=== PATIENT | male | born 1955 | race African-American/Black ===

== ENCOUNTER 2016-08-11 03:13 | Inpatient (IN) | payer BC ==
[~2016-08-11] VITALS: Ht 184.2 cm; Wt 152.4 kg
[2016-08-11 04:18] LABS: BASO % 0 % (0-3); EOS % 0 % (0-3); HEMATOCRIT 42.3 % (39.0-53.0); HEMOGLOBIN 13.1 g/dL (13.0-17.5); LYMPH % 8 % (24-48); MEAN CORPUSCULAR HEMOGLOBIN 22 pg (25-35); MEAN CORPUSCULAR HGB CONC 31 g/dL (31-37); MEAN CORPUSCULAR VOLUME 71 fL (79-100); MONO % 8 % (0-9); NEUT % 84 % (31-73); PLATELET COUNT 166 x10^3/uL (140-400); RED BLOOD COUNT 5.97 x10^6/uL (4.30-5.70); RED CELL DISTRIBUTION WIDTH 15.1 % (11.5-14.5); WHITE BLOOD COUNT 13.3 x10^3/uL (4.0-11.0)
[2016-08-11 04:31] LABS: CALCIUM 8.6 mg/dL (8.5-10.1); CREATININE 1.2 mg/dL (0.7-1.3); GFR 61.1; POTASSIUM 3.9 mmol/L (3.5-5.1)
[2016-08-11 04:37] LABS: OBC FLU VALID
[2016-08-11 04:37] LABS: ALBUMIN 3.4 g/dL (3.4-5.0); ALBUMIN/GLOBULIN RATIO 0.7 (1.0-1.7); TOTAL BILIRUBIN 0.9 mg/dL (0.2-1.0)
[2016-08-11 04:52] LABS: BILIRUBIN,URINE SMALL (NEG); GLUCOSE,URINE NEGATIVE (NEG); NITRITE,URINE NEGATIVE (NEG); PH,URINE 5.5; PROTEIN,URINE 30 mg/dL (NEG-TRACE); UROBILINOGEN,URINE 0.2 mg/dL (0.2 mg/dL)
[2016-08-11] MEDS ORDERED: ASPIRIN 325 MG TABLET PO ONE (05:15)
[2016-08-11 05:33] LABS: RBC,URINE OCC /HPF (0-2)
[2016-08-11 05:34] LABS: BACTERIA,URINE 0 /HPF (0-FEW); SQUAMOUS EPITHELIAL CELL,UR FEW /LPF
[2016-08-11] MEDS ORDERED: ACETAMINOPHEN 325 MG TABLET. PO PRN ×2 (05:45→09:15)
[2016-08-11] MEDS ORDERED: ONDANSETRON PF 4 MG/2 ML VIAL. IV PRN ×2 (05:45→09:15)
[2016-08-11] MEDS ORDERED: FENTANYL PF 100 MCG/2 ML VIAL. IV PRN (05:45)
[2016-08-11 06:07] VITALS: BP 133/77
[2016-08-11 07:00] VITALS: BP 137/75
--- NOTE | 2016-08-11 07:19 | ED.ADGEN ---
Past Medical History Past Medical History: Hypertension Past Surgical History: No Surgical History Alcohol Use: None Drug Use: None Adult General Chief Complaint Chief Complaint: FLU SYMPTOM HPI HPI Patient is a 61 year old man, history of hypertension, who presents emergency Department with complaint of "flu symptoms". Patient states he had positive sick contacts at home from his granddaughter, who was presumed to have the flu. He states that over the past several days he can feel increasingly weak, experiencing a feeling of "sickness", which he describes as a sort of nausea, dizziness, lightheadedness and shortness of breath that occurs intermittently. He denies any chest pain or chest tightness. Denies any vomiting, states he has had multiple episodes of loose brown stool. States he is having pain in the epigastric region, sharp, stabbing and cramping, although he denies printing any pain currently. Patient states he is feeling weak all over, but denies any focal weakness numbness or tingling, any blurred vision, any headache, any injuries. Patient has been compliant with all medications. No recent travel or surgery, history of DVT or PE. Review of Systems Review of Systems Constitutional: Denies fever or chills. [] Generalized weakness and malaise. Eyes: Denies change in visual acuity. [] HENT: Denies nasal congestion or sore throat. [] Respiratory: Denies cough, complaining of shortness of breath. Cardiovascular: Denies chest pain or edema. [] GI: Epigastric abdominal pain with nausea, denies vomiting, bloody stools, multiple episodes of diarrhea. [] : Denies dysuria. [] Musculoskeletal: Denies back pain or joint pain. [] Integument: Denies rash. [] Neurologic: Denies headache, focal weakness or sensory changes. [] Endocrine: Denies polyuria or polydipsia. [] Lymphatic: Denies swollen glands. [] Psychiatric: Denies depression or anxiety. [] Current Medications Current Medications Current Medications Medications (Trade) Dose Ordered Sig/Cipriano Start Time Stop Time Status Last Admin Dose Admin Aspirin (Kimberly Aspirin) 325 mg 1X ONCE 08/11/16 05:15 08/11/16 05:16 DC 08/11/16 05:08 325 MG Allergies Allergies Allergies Coded Allergies Type Severity Reaction Last Updated Verified No Known Drug Allergies 08/11/16 No Physical Exam Physical Exam Constitutional: Well developed, well nourished, no acute distress, non-toxic appearance. [] HENT: Normocephalic, atraumatic, bilateral external ears normal, oropharynx moist, no oral exudates, nose normal. [] Eyes: PERRLA, EOMI, conjunctiva normal, no discharge. [] Neck: Normal range of motion, no tenderness, supple, no stridor. [] Cardiovascular:Heart rate regular rhythm, no murmur [] Lungs & Thorax: Bilateral breath sounds clear to auscultation [] Abdomen: Bowel sounds normal, soft, no tenderness, no masses, no pulsatile masses. [] Skin: Warm, dry, no erythema, no rash. [] Back: No tenderness, no CVA tenderness. [] Extremities: No tenderness, no cyanosis, no clubbing, ROM intact, no edema. [] Neurologic: Alert and oriented X 3, normal motor function, normal sensory function, no focal deficits noted. [] Psychologic: Affect normal, judgement normal, mood normal. [] Current Patient Data Vital Signs Vital Signs Date Time Temp Pulse Resp B/P Pulse Ox O2 Delivery O2 Flow Rate FiO2 08/11/16 04:55 80 155/82 94 Room Air 08/11/16 03:28 98.4 18 98.4 Lab Values Laboratory Tests Test 08/11/16 03:22 08/11/16 03:52 08/11/16 04:30 08/11/16 04:40 Influenza Type A Antigen Negative (NEGATIVE) Influenza Type B Antigen Negative (NEGATIVE) White Blood Count 13.3x10^3/uL (4.0-11.0) H Red Blood Count 5.97x10^6/uL (4.30-5.70) H Hemoglobin 13.1g/dL (13.0-17.5) Hematocrit 42.3% (39.0-53.0) Mean Corpuscular Volume 71fL (79-100) L Mean Corpuscular Hemoglobin 22pg (25-35) L Mean Corpuscular Hemoglobin Concent 31g/dL (31-37) Red Cell Distribution Width 15.1% (11.5-14.5) H Platelet Count 166x10^3/uL (140-400) Neutrophils (%) (Auto) 84% (31-73) H Lymphocytes (%) (Auto) 8% (24-48) L Monocytes (%) (Auto) 8% (0-9) Eosinophils (%) (Auto) 0% (0-3) Basophils (%) (Auto) 0% (0-3) Neutrophils # (Auto) 11.1x10^3uL (1.8-7.7) H Lymphocytes # (Auto) 1.0x10^3/uL (1.0-4.8) Monocytes # (Auto) 1.1x10^3/uL (0.0-1.1) Eosinophils # (Auto) 0.0x10^3/uL (0.0-0.7) Basophils # (Auto) 0.0x10^3/uL (0.0-0.2) Platelet Estimate Pending Sodium Level 138mmol/L (136-145) Potassium Level 3.9mmol/L (3.5-5.1) Chloride Level 103mmol/L (98-107) Carbon Dioxide Level 19mmol/L (21-32) L Anion Gap 16 (6-14) H Blood Urea Nitrogen 20mg/dL (8-26) Creatinine 1.2mg/dL (0.7-1.3) Estimated GFR (Cockcroft-Gault) 61.1 BUN/Creatinine Ratio 17 (6-20) Glucose Level 124mg/dL (70-99) H Calcium Level 8.6mg/dL (8.5-10.1) Total Bilirubin 0.9mg/dL (0.2-1.0) Aspartate Amino Transferase (AST) 39U/L (15-37) H Alanine Aminotransferase (ALT) 60U/L (16-63) Alkaline Phosphatase 65U/L (46-116) Troponin I Quantitative 0.083ng/mL (0.000-0.055) PL-Ssz-X-Type Natriuretic Peptide 12pg/mL (0-124) Total Protein 8.0g/dL (6.4-8.2) Albumin 3.4g/dL (3.4-5.0) Albumin/Globulin Ratio 0.7 (1.0-1.7) L Lipase 106U/L (73-393) Urine Collection Type Unknown Urine Color Courtney Urine Clarity Clear Urine pH 5.5 Urine Specific [place] 1.025 Urine Protein 30mg/dL (NEG-TRACE) Urine Glucose (UA) Negativemg/dL (NEG) Urine Ketones (Stick) Negativemg/dL (NEG) Urine Blood Negative (NEG) Urine Nitrite Negative (NEG) Urine Bilirubin Small (NEG) Urine Urobilinogen Dipstick 0.2mg/dL (0.2 mg/dL) Urine Leukocyte Esterase Negative (NEG) Urine RBC Occ/HPF (0-2) Urine WBC 1-4/HPF (0-4) Urine Squamous Epithelial Cells Few/LPF Urine Bacteria 0/HPF (0-FEW) Urine Hyaline Casts Moderate/HPF Urine Mucus Marked/LPF Lactic Acid Level 0.8mmol/L (0.4-2.0) Laboratory Tests 08/11/16 03:52 Laboratory Tests 08/11/16 03:52 EKG EKG EC: Sinus rhythm, heart rate 78 beats minute, left axis deviation, QTC of 439, MD 158, QRS of 90, contour abnormalities noted in the anterior septal leads, no ST elevations, no depressions, abnormal ECG, does not meet STEMI criteria. As interpreted by me. [] Radiology/Procedures Radiology/Procedures Chest x-ray: One view: Patient with suboptimal inspiration limiting evaluation, possible atelectasis at the base of the left lung field, no pneumothorax, no soft tissue or bony abnormalities identified, no obvious effusions. As interpreted by me. Course & Med Decision Making Course & Med Decision Making Pertinent Labs and Imaging studies reviewed. (See chart for details) Patient complaining of generalized weakness, is having difficulty sitting and standing. Decreased appetite. Several episodes of diarrhea, is fairly loose brown stool without blood. No recent antibiotic use, no fevers, laboratory studies are negative for leukocytosis, chest x-ray suboptimal does not reveal any obvious abnormalities. Influenza swab is negative. However patient's troponin is slightly positive at 0.083. In conjunction with the patient's complaint of weakness, nausea, and epigastric pain, aspirin administered. Findings as above discussed with Dr. Barker of cardiology, patient is symptom -free at this time, has not previously received a stress test or catheterization. At this time based the patient's presentation and current examination, with ECG findings as stated, he does not recommend instituting any coagulation aside from the aspirin menstruation which has been given. He will evaluate the patient this morning. Patient is agreeable with plan for admission , is resting comfortably. Findings as above discussed with Dr. Rojas of internal medicine, patient accepted to her service as a full admission to the cardiac telemetry floor with consultation with cardiology, laboratory studies as stated. Dragon Disclaimer Dragon Disclaimer This electronic medical record was generated, in whole or in part, using a voice recognition dictation system. Departure Impression: Primary Impression: NSTEMI (non-ST elevated myocardial infarction) Additional Impression: Generalized weakness Disposition: ADMITTED INPATIENT Admitting Physician: Omar Rojas Condition: STABLE Problem Qualifiers RONI WOLF DO Aug 11, 2016 07:19
--- NOTE | 2016-08-11 07:53 | RAD ---
Indication: Dizziness Technique: Upright portable chest radiograph was obtained. Comparison is from March 10, 2016. Findings: Allowing for inspiratory effort, the lungs are clear. The cardiopulmonary silhouette is within normal limits. The bony structures are intact. Leads overlie the patient. Impression: No active pulmonary disease.
--- NOTE | 2016-08-11 08:19 | ACF ---
Admit Criteria Forms Admit Criteria Forms Admit Criteria Forms MYOCARDIAL INFARCTION Clinical Indications for Admission to Inpatient Care (Place 'X' for any and all applicable criteria): Admission is indicated for ANY ONE of the following (1)(2)(3)(4): [X]I. Acute [place] [ ]II. Contraindications and/or Inappropriate clinical situations for Observational Care in patients with Myocardial Infarction, when ANY ONE of the following is required: [ ]a) Patient with High risk of cardiac embolism (e.g, patients with previous cardiac embolism, LVEF < 40%, age >75 and patients with prosthetic valve) 18 [ ]b) Patient with Moderate risk including DM patient, CAD and patient aged 65-75 18 [ ]c) Patient with any change in cardiac biomarker especially troponin should be managed as high risk in an inpatient setting 19 [ ]d) Physician judgement irrespective of ECG and other diagnostic findings 20 [ ]III.General contraindications and/or Inappropriate clinical situations for Observational Care in patients with Myocardial Infarction, when ANY ONE of the following is required: [ ]a) Prediction of prolongation of LOS based on ANY ONE of the following may be considered as a contraindication for observational care 2, 3, 4, 5, 6, 7, 8, 9, 10, 11 [ ]i) Age > 65 yrs. [ ]ii) Patient arriving by ambulance [ ]iii) Patient with high acuity [ ]iv) Patient requiring vital sign monitoring [ ]v) Patient on IV medication [ ]b) Systolic blood pressures 180mmHg 3,12 [ ]c) Patient with altered mental status including delirium and other alteration of consciousness, (3) [ ]d) Patient whose discharge disposition will be to a usp home or rehabilitation home should not be managed in Emergency Department Observation Unit. CMS rule requires 3 days hospital stay before such placement. 3,13 [ ]e) Patient with failure to thrive due to broad array of etiologies 3 ,16,17 [ ]f) Inability to ambulate 3,14 Extended stay beyond goal length of stay may be needed for (1)(18)(20)(24)(25): [ ]a) Hemodynamic instability, persisting symptoms after intensive medical management, or recurring severe, prolonged symptoms [ ]b) Intravascular procedural complications such as acute vessel closure, stent thrombosis, stent malposition, or vessel dissection (26)(27)(28) [ ]c) Extravascular procedural complications such as retroperitoneal hematoma , pericardial effusion, or cardiac tamponade [ ]d) Entry site complications causing bleeding, hematoma or distal ischemia and requiring ongoing monitoring, surgical repair or surgical thrombectomy(29) [ ]e) Dangerous arrhythmia [ ]f) Complicated percutaneous coronary intervention (e.g., unsuccessful percutaneous coronary intervention or percutaneous coronary intervention of non- [place] vessel) [ ]g) Urgent or emergent surgery for complications of [place] (e.g., ventricular rupture, valvular insufficiency) [ ]h) Surgical revascularization via coronary artery bypass graft [ ]i) Heart failure (e.g., pulmonary edema) [ ]j) Unstable pulmonary comorbidities, including COPD or pneumonia (31) [ ]k) Acute renal failure The original [email or web address] content created by [employer] has been revised. The portions of the content which have been revised are identified through the use of italic text or in bold, and [facility] has neither reviewed nor approved the modified material. All other unmodified content is copyright [facility] [employer] Please see references footnoted in the original [facility] edition 2016 YURI HWANG Aug 11, 2016 08:19
--- NOTE | 2016-08-11 09:02 | PDOC1 ---
History and Physical Current Problem List Problem List Problems Medical Problems: (1) Generalized weakness Status: Acute (2) NSTEMI (non-ST elevated myocardial infarction) Status: Acute Current Medications Current Medications Current Medications Medications (Trade) Dose Ordered Sig/Cipriano Start Time Stop Time Status Last Admin Dose Admin Acetaminophen (Tylenol) 650 mg PRN Q4HRS PRN 08/11/16 05:45 08/12/16 05:44 Aspirin (Kimberly Aspirin) 325 mg 1X ONCE 08/11/16 05:15 08/11/16 05:16 DC 08/11/16 05:08 325 MG Fentanyl Citrate (Fentanyl 2ml Vial) 50 mcg PRN Q1HR PRN 08/11/16 05:45 08/12/16 05:44 Ondansetron HCl (Zofran) 4 mg PRN Q8HRS PRN 08/11/16 05:45 08/12/16 05:44 Allergies Allergies Allergies Coded Allergies Type Severity Reaction Last Updated Verified No Known Drug Allergies 08/11/16 No ROS Review of System CONSTITUTIONAL: No fever or chills, weakness, fatigues EYES: No recent changes SKIN: No rash or itching CARDIOVASCULAR: No chest pain, syncope, palpitations, or edema RESPIRATORY: No SOB or cough GASTROINTESTINAL: diarrhea, abdominal pain NEUROLOGICAL: No headaches or weakness ENDOCRINE: No cold or heat intolerance GENITOURINARY: No urgency or frequency of urination MUSCULOSKELETAL: No back pain or joint pain LYMPHATICS: No enlarged lymph nodes PSYCHIATRIC: No anxiety or depression Physical Exam Physical Exam GEN.: No apparent distress. Alert and oriented. HEENT: Head is normocephalic, atraumatic NECK: Supple. LUNGS: Clear to auscultation. HEART: RRR, S1, S2 present. Peripheral pulses intact ABDOMEN: Soft, nontender. Positive bowel sounds. EXTREMITIES: Without any cyanosis. NEUROLOGIC: Normal speech, normal tone PSYCHIATRIC: Normal affect, normal mood. SKIN: No ulcerations Vitals Vitals Vital Signs Date Time Temp Pulse Resp B/P Pulse Ox O2 Delivery O2 Flow Rate FiO2 08/11/16 07:00 99.0 84 16 137/75 96 Room Air 99.0 Labs Labs Laboratory Tests Test 08/11/16 03:22 08/11/16 03:52 08/11/16 04:30 08/11/16 04:40 Influenza Type A Antigen Negative (NEGATIVE) Influenza Type B Antigen Negative (NEGATIVE) White Blood Count 13.3x10^3/uL (4.0-11.0) Red Blood Count 5.97x10^6/uL (4.30-5.70) Hemoglobin 13.1g/dL (13.0-17.5) Hematocrit 42.3% (39.0-53.0) Mean Corpuscular Volume 71fL (79-100) Mean Corpuscular Hemoglobin 22pg (25-35) Mean Corpuscular Hemoglobin Concent 31g/dL (31-37) Red Cell Distribution Width 15.1% (11.5-14.5) Platelet Count 166x10^3/uL (140-400) Neutrophils (%) (Auto) 84% (31-73) Lymphocytes (%) (Auto) 8% (24-48) Monocytes (%) (Auto) 8% (0-9) Eosinophils (%) (Auto) 0% (0-3) Basophils (%) (Auto) 0% (0-3) Neutrophils # (Auto) 11.1x10^3uL (1.8-7.7) Lymphocytes # (Auto) 1.0x10^3/uL (1.0-4.8) Monocytes # (Auto) 1.1x10^3/uL (0.0-1.1) Eosinophils # (Auto) 0.0x10^3/uL (0.0-0.7) Basophils # (Auto) 0.0x10^3/uL (0.0-0.2) Sodium Level 138mmol/L (136-145) Potassium Level 3.9mmol/L (3.5-5.1) Chloride Level 103mmol/L (98-107) Carbon Dioxide Level 19mmol/L (21-32) Anion Gap 16 (6-14) Blood Urea Nitrogen 20mg/dL (8-26) Creatinine 1.2mg/dL (0.7-1.3) Estimated GFR (Cockcroft-Gault) 61.1 BUN/Creatinine Ratio 17 (6-20) Glucose Level 124mg/dL (70-99) Calcium Level 8.6mg/dL (8.5-10.1) Total Bilirubin 0.9mg/dL (0.2-1.0) Aspartate Amino Transf (AST/SGOT) 39U/L (15-37) Alanine Aminotransferase (ALT/SGPT) 60U/L (16-63) Alkaline Phosphatase 65U/L (46-116) Troponin I Quantitative 0.083ng/mL (0.000-0.055) NM-Jtg-S-Type Natriuretic Peptide 12pg/mL (0-124) Total Protein 8.0g/dL (6.4-8.2) Albumin 3.4g/dL (3.4-5.0) Albumin/Globulin Ratio 0.7 (1.0-1.7) Lipase 106U/L (73-393) Urine Collection Type Unknown Urine Color Courtney Urine Clarity Clear Urine pH 5.5 Urine Specific [place] 1.025 Urine Protein 30mg/dL (NEG-TRACE) Urine Glucose (UA) Negativemg/dL (NEG) Urine Ketones (Stick) Negativemg/dL (NEG) Urine Blood Negative (NEG) Urine Nitrite Negative (NEG) Urine Bilirubin Small (NEG) Urine Urobilinogen Dipstick 0.2mg/dL (0.2 mg/dL) Urine Leukocyte Esterase Negative (NEG) Urine RBC Occ/HPF (0-2) Urine WBC 1-4/HPF (0-4) Urine Squamous Epithelial Cells Few/LPF Urine Bacteria 0/HPF (0-FEW) Urine Hyaline Casts Moderate/HPF Urine Mucus Marked/LPF Lactic Acid Level 0.8mmol/L (0.4-2.0) Laboratory Tests Test 08/11/16 03:22 08/11/16 03:52 08/11/16 04:30 08/11/16 04:40 Influenza Type A Antigen Negative (NEGATIVE) Influenza Type B Antigen Negative (NEGATIVE) White Blood Count 13.3x10^3/uL (4.0-11.0) Red Blood Count 5.97x10^6/uL (4.30-5.70) Hemoglobin 13.1g/dL (13.0-17.5) Hematocrit 42.3% (39.0-53.0) Mean Corpuscular Volume 71fL (79-100) Mean Corpuscular Hemoglobin 22pg (25-35) Mean Corpuscular Hemoglobin Concent 31g/dL (31-37) Red Cell Distribution Width 15.1% (11.5-14.5) Platelet Count 166x10^3/uL (140-400) Neutrophils (%) (Auto) 84% (31-73) Lymphocytes (%) (Auto) 8% (24-48) Monocytes (%) (Auto) 8% (0-9) Eosinophils (%) (Auto) 0% (0-3) Basophils (%) (Auto) 0% (0-3) Neutrophils # (Auto) 11.1x10^3uL (1.8-7.7) Lymphocytes # (Auto) 1.0x10^3/uL (1.0-4.8) Monocytes # (Auto) 1.1x10^3/uL (0.0-1.1) Eosinophils # (Auto) 0.0x10^3/uL (0.0-0.7) Basophils # (Auto) 0.0x10^3/uL (0.0-0.2) Sodium Level 138mmol/L (136-145) Potassium Level 3.9mmol/L (3.5-5.1) Chloride Level 103mmol/L (98-107) Carbon Dioxide Level 19mmol/L (21-32) Anion Gap 16 (6-14) Blood Urea Nitrogen 20mg/dL (8-26) Creatinine 1.2mg/dL (0.7-1.3) Estimated GFR (Cockcroft-Gault) 61.1 BUN/Creatinine Ratio 17 (6-20) Glucose Level 124mg/dL (70-99) Calcium Level 8.6mg/dL (8.5-10.1) Total Bilirubin 0.9mg/dL (0.2-1.0) Aspartate Amino Transf (AST/SGOT) 39U/L (15-37) Alanine Aminotransferase (ALT/SGPT) 60U/L (16-63) Alkaline Phosphatase 65U/L (46-116) Troponin I Quantitative 0.083ng/mL (0.000-0.055) DO-Bwa-I-Type Natriuretic Peptide 12pg/mL (0-124) Total Protein 8.0g/dL (6.4-8.2) Albumin 3.4g/dL (3.4-5.0) Albumin/Globulin Ratio 0.7 (1.0-1.7) Lipase 106U/L (73-393) Urine Collection Type Unknown Urine Color Courtney Urine Clarity Clear Urine pH 5.5 Urine Specific [place] 1.025 Urine Protein 30mg/dL (NEG-TRACE) Urine Glucose (UA) Negativemg/dL (NEG) Urine Ketones (Stick) Negativemg/dL (NEG) Urine Blood Negative (NEG) Urine Nitrite Negative (NEG) Urine Bilirubin Small (NEG) Urine Urobilinogen Dipstick 0.2mg/dL (0.2 mg/dL) Urine Leukocyte Esterase Negative (NEG) Urine RBC Occ/HPF (0-2) Urine WBC 1-4/HPF (0-4) Urine Squamous Epithelial Cells Few/LPF Urine Bacteria 0/HPF (0-FEW) Urine Hyaline Casts Moderate/HPF Urine Mucus Marked/LPF Lactic Acid Level 0.8mmol/L (0.4-2.0) VTE Prophylaxis Ordered VTE Prophylaxis Devices: No VTE Pharmacological Prophylaxi: No EVIN CID MD Aug 11, 2016 09:02
[2016-08-11] MEDS: FAMOTIDINE 20 MG/2 ML VIAL IVP SCH ×2 (09:13→20:59)
[2016-08-11] MEDS: IV NORMAL SALINE 1000ML BAG 1,000 ML IV SCH ×2 (09:14→22:53)
[2016-08-11] MEDS ORDERED: ALBUTEROL SULFATE 2.5 MG/3 ML NEBU. NEB PRN (09:15)
[2016-08-11] MEDS ORDERED: hydrALAZINE 20 MG/ML VIAL. IVP PRN (09:15)
[2016-08-11] MEDS ORDERED: HYDROCODONE/APAP 5/325MG TABLET. PO PRN (09:15)
--- NOTE | 2016-08-11 10:24 | HP ---
ADMIT DATE: 08/11/2016 CHIEF COMPLAINT: Fatigue and weakness. HISTORY OF PRESENT ILLNESS: A 61-year-old male patient with prior history of GERD and questionable hypertension, presented to the ER with complaints of generalized weakness, flu-like symptoms nearly 4 or 5 days. The patient's granddaughter got sick at home. She had some diarrhea after that his and he got symptoms such as nausea, dizziness, weakness, lightheadedness, and some diarrhea; however, 's symptoms resolved. The patient continued to feel symptoms such as diarrhea and fatigue and not able to eat well and noted to have some epigastric pain, which has been sharp, crampy. Now pain has been resolved. The patient has a history of GERD. He denies any chest pain, shortness of breath, palpitations or lower extremity swelling. PAST MEDICAL HISTORY: Hypertension and GERD. PAST SURGICAL HISTORY: None. PERSONAL HISTORY: No smoking, no alcohol, no drug abuse. FAMILY HISTORY: Father had some coronary artery problems. REVIEW OF SYSTEMS: Please see my electronic H and P. PHYSICAL EXAMINATION: Please see my electronic H and P. LABORATORY DATA: Sodium 138, potassium 3.9, chloride is 103, carbon dioxide 19, anion gap 16, creatinine 1.2, BUN and creatinine 61 and 0.1. Troponin 0.083. Hematology: WBC 13.3, hemoglobin 13.1, MCV is 71, platelets pending. In Serology, influenza A and B negative. Urine pH is 5.5, protein is 30, ketones negative, nitrites negative and leukoesterase negative. IMAGING STUDIES: Chest x-ray: No active pulmonary disease seen. ASSESSMENT AND PLAN: 1. Possible viral gastroenteritis. 2. Mild elevation of troponins. 3. Hypertension. 4. Metabolic acidosis. 5. General weakness, flu-like symptoms. PLAN: 1. He has been admitted to step-down unit for diarrhea and physical weakness and fatigue, will continue IV hydration at 75 mL hour. 2. The patient had mild elevation of troponins with some epigastric pain. EKG is normal sinus rhythm at 78 beats per minute; however, I could not able to verify the EKG as per the ER report, no ST-T wave changes seen. 3. Cardiology has been consulted. 4. I will give him IV Pepcid x 2. 5. Monitor CBC, BMP in a.m. 6. P.r.n. hydralazine for high blood pressure. 7. The patient had a history of fluctuating blood pressures, sometimes it is normal. Sometimes it is go high. 8. No DVT prophylaxis and ____ 2-[address] EVIN CID MD [address]: RIO/hussain JOB#: [id number] / [id number] KACI
[2016-08-11 11:03] LABS: ANISOCYTOSIS SLIGHT; PLT ESTIMATE ADEQUATE (ADEQUATE)
--- NOTE | 2016-08-11 11:11 | EKG ---
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
[2016-08-11 11:40] VITALS: BP 153/92
[2016-08-11 15:00] VITALS: BP 158/82
[2016-08-11] MEDS ORDERED: AMLODIPINE BESYLATE 5 MG TABLET PO ONE (15:00)
--- NOTE | 2016-08-11 15:50 | CONS ---
DATE OF CONSULTATION: 08/11/2016 REASON FOR CONSULTATION: Elevated troponin. HISTORY OF PRESENT ILLNESS: The patient is a pleasant 61-year-old gentleman who comes to the ER with mostly gastrointestinal symptoms. It is unclear why a troponin was checked, but he was noted to have an elevated troponin at 0.083 and therefore he was admitted for further evaluation. In speaking with the patient, he had viral gastroenteritis from his and/or grandchild. He otherwise denies any chest pain, orthopnea, PND or lower extremity edema. He at baseline is able to do activities around the house without any limitations. He has never had any prior cardiovascular disease. PAST MEDICAL HISTORY: 1. Possible hypertension. 2. Possible GERD. 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 He denies any alcohol, tobacco or illicit drug use. FAMILY HISTORY: Notable for coronary artery disease in his mother in her 50s. ALLERGIES: No known drug allergies. CARDIOVASCULAR MEDICATIONS: None. REVIEW OF SYSTEMS: Negative for 10 out of 14 systems reviewed, unless otherwise mentioned above in HPI. PHYSICAL EXAMINATION: VITAL SIGNS: Afebrile, heart rate 66 respiratory rate 16, blood pressure 165/82. GENERAL: He is alert and oriented, in no acute distress. HEAD AND NECK: Unremarkable. CARDIAC: Regular rate and rhythm without any murmurs, rubs or gallops. LUNGS: Clear to auscultation. ABDOMEN: Soft, nontender, nondistended. EXTREMITIES: No clubbing, cyanosis or edema. NEUROLOGIC: No focal deficits. MUSCULOSKELETAL: No trauma. PSYCHIATRIC: Normal affect and mood. DIAGNOSTIC STUDIES: 1. Troponin 0.083, now down trending to 0.071. 2. Hemoglobin 13.1, platelets 166, creatinine 1.2, LFTs within normal limits. 3. ProBNP 12. Chest x-ray is unremarkable. EKG is unremarkable. IMPRESSION: 1. Hypertension, uncontrolled, stage 2. 2. Elevated troponin, likely secondary to hypertensive heart disease and/or dehydration and stress from GI illness. RECOMMENDATIONS: 1. We will obtain an echocardiogram. 2. We will start the patient on low dose amlodipine for hypertension and monitor on an outpatient basis. Thank you for this consultation. ROSALIE MILLER MD DR: FANY/hussain JOB#: [id number] / [id number] KACI
[2016-08-11 19:45] VITALS: BP 148/87
[2016-08-11 22:26] VITALS: BP 136/67
[2016-08-12 03:37] VITALS: BP 142/77
[2016-08-12 05:20] LABS: BASO % 1 % (0-3); EOS % 1 % (0-3); HEMATOCRIT 39.3 % (39.0-53.0); HEMOGLOBIN 12.5 g/dL (13.0-17.5); LYMPH % 26 % (24-48); MEAN CORPUSCULAR HEMOGLOBIN 22 pg (25-35); MEAN CORPUSCULAR HGB CONC 32 g/dL (31-37); MEAN CORPUSCULAR VOLUME 69 fL (79-100); MONO % 13 % (0-9); NEUT % 60 % (31-73); PLATELET COUNT 138 x10^3/uL (140-400); RED CELL DISTRIBUTION WIDTH 15.1 % (11.5-14.5); WHITE BLOOD COUNT 7.7 x10^3/uL (4.0-11.0)
[2016-08-12 05:51] LABS: CALCIUM 8.1 mg/dL (8.5-10.1); GFR 91.3; POTASSIUM 3.4 mmol/L (3.5-5.1)
[2016-08-12 07:00] VITALS: BP 136/80
[2016-08-12 07:30] VITALS: BP 136/80
[2016-08-12] MEDS ORDERED: POTASSIUM CHLORIDE 20 MEQ TABLET.ER. PO ONE (08:45)
[2016-08-12] MEDS ORDERED: AMLODIPINE BESYLATE 5 MG TABLET PO SCH (09:00)
[2016-08-12 10:21] VITALS: BP 141/81
--- NOTE | 2016-08-12 11:37 | PDOC ---
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 08/12/16 1137: CARDIO Progress Notes Date and Time Date of Service 08/12/2016 Time of Evaluation 1133 Subjective Subjective: No Chest Pain, No shortness of breath, No Palpitations, No Dizziness Vitals Vitals Vital Signs Date Time Temp Pulse Resp B/P Pulse Ox O2 Delivery O2 Flow Rate FiO2 08/12/16 10:21 97.5 70 18 141/81 94 Room Air 97.5 Weight Weight [ ] Input and Output Intake and Output Intake and Output 08/12/16 07:00 Intake Total 815 ml Balance 815 ml Intake Oral 200 ml Other 615 ml # Voids 5 # Bowel Movements 1 Laboratory Labs Laboratory Tests Test 08/11/16 14:55 08/12/16 04:19 Troponin I Quantitative 0.071ng/mL (0.000-0.055) White Blood Count 7.7x10^3/uL (4.0-11.0) Red Blood Count 5.70x10^6/uL (4.30-5.70) Hemoglobin 12.5g/dL (13.0-17.5) Hematocrit 39.3% (39.0-53.0) Mean Corpuscular Volume 69fL (79-100) Mean Corpuscular Hemoglobin 22pg (25-35) Mean Corpuscular Hemoglobin Concent 32g/dL (31-37) Red Cell Distribution Width 15.1% (11.5-14.5) Platelet Count 138x10^3/uL (140-400) Neutrophils (%) (Auto) 60% (31-73) Lymphocytes (%) (Auto) 26% (24-48) Monocytes (%) (Auto) 13% (0-9) Eosinophils (%) (Auto) 1% (0-3) Basophils (%) (Auto) 1% (0-3) Neutrophils # (Auto) 4.6x10^3uL (1.8-7.7) Lymphocytes # (Auto) 2.0x10^3/uL (1.0-4.8) Monocytes # (Auto) 1.0x10^3/uL (0.0-1.1) Eosinophils # (Auto) 0.1x10^3/uL (0.0-0.7) Basophils # (Auto) 0.0x10^3/uL (0.0-0.2) Sodium Level 140mmol/L (136-145) Potassium Level 3.4mmol/L (3.5-5.1) Chloride Level 107mmol/L (98-107) Carbon Dioxide Level 21mmol/L (21-32) Anion Gap 12 (6-14) Blood Urea Nitrogen 16mg/dL (8-26) Creatinine 1.0mg/dL (0.7-1.3) Estimated GFR (Cockcroft-Gault) 91.3 Glucose Level 96mg/dL (70-99) Calcium Level 8.1mg/dL (8.5-10.1) Physical Exam HEENT: Neck Supple W Full Motion Chest: Symmetric LUNGS: Clear to Auscultation Heart: S1S2, RRR, other (tele: SR) Abdomen: Soft N/T Extremities: No Edema Neurology: alert, oriented, follow commands Assessment Assessment 1. Hypertension, uncontrolled, stage 2 SBP ~ 140 continue meds f/u in office in about 3 - 4 weeks 2. Elevated troponin, likely secondary to hypertensive heart disease and/or dehydration and stress from GI illness echo pending ROSALIE MILLER MD 08/12/16 2218: CARDIO Progress Notes Plan Plan Pt. seen and examined. Agree with above DISTRICT MANAGER note. No acute events overnight. No CP Normal exam today echo unremarkable. Ok to DC with f/u with PCP in 4-6 weeks for BP mgmt. SHANTA MARQUIS APRN Aug 12, 2016 11:37 ROSALIE MILLER MD Aug 12, 2016 22:18
[2016-08-12] MEDS: IV NORMAL SALINE 1000ML BAG 1,000 ML IV SCH (11:40)
--- NOTE | 2016-08-12 12:51 | CARD ---
APPROVED REPORT EXAM: Two-dimensional and M-mode echocardiogram with Doppler and color Doppler. Other Information Quality : Average Rhythm : NSR INDICATION Non STEMI 2D DIMENSIONS RVDd2.9 (2.9-3.5cm)Left Atrium(2D)4.2 (1.6-4.0cm) IVSd1.0 (0.7-1.1cm)Aortic Root(2D)3.0 (2.0-3.7cm) LVDd4.9 (3.9-5.9cm)LVOT Diameter2.3 (1.8-2.4cm) PWd1.0 (0.7-1.1cm)LVDs2.7 (2.5-4.0cm) FS (%) 32.3 %SV84.4 ml LVEF(%)64.6 (>50%) Aortic Valve AoV Peak Clint.125.9cm/sAoV VTI21.0cm AO Peak GR.6.3mmHgLVOT Peak Clint.99.2cm/s LVOT VTI 19.68cmAO Mean GR.4mmHg REYNALDO (VMAX)3.96ax0BSQ (VTI)3.88cm2 Mitral Valve MV E Joqumwuy36.1cm/sMV DECEL AYNI700ft MV A Tbvuqevv37.5cm/sMV E Mean Gr.1mmHg MV CHF68ghH/A Ratio0.9 MV A Bnbzeamk251nsUFT (PHT)2.73cm2 TDI E/Lateral E'3.7E/Medial E'8.0 Pulmonary Valve PV Peak Tgtkvjtq282.1cm/sPV Peak Grad.6mmHg RVOT VTI17.5cm Tricuspid Valve TR P. Stdxstrs802pe/sRAP ZHXOMKLL8zmMx TR Peak Gr.86gtHsFVBC96neTe LEFT VENTRICLE The left ventricle is normal size. There is normal left ventricular wall thickness. Left ventricle sy stolic function is normal. The Ejection Fraction is 60-65%. There is normal LV segmental wall motion. Tissue Doppler imaging reveals mild left ventricular diastolic dysfunction. Transmitral Doppler flow pattern is Grade I-abnormal relaxation pattern. RIGHT VENTRICLE The right ventricle is normal size. The right ventricular systolic function is normal. ATRIA The left atrium is borderline dilated. The right atrium size is normal. The interatrial septum is int act with no evidence for an atrial septal defect or patent foramen ovale as noted on 2-D or Doppler i maging. AORTIC VALVE The aortic valve is normal in structure and function. The aortic valve is trileaflet. Doppler and Col or Flow revealed no significant aortic regurgitation. There is no significant aortic valvular stenosi s. MITRAL VALVE The mitral valve is normal in structure and function. There is no mitral valve stenosis. Doppler and Color Flow revealed trace mitral regurgitation. TRICUSPID VALVE The tricuspid valve is normal in structure and function. Doppler and Color Flow revealed mild tricusp id regurgitation. The PA pressure was estimated at 38 mmHg. There is no tricuspid valve stenosis. PULMONIC VALVE The pulmonic valve is not well visualized. Doppler and Color Flow revealed no pulmonic valvular regur gitation. There is no pulmonic valvular stenosis. GREAT VESSELS The aortic root is normal in size. Normal pulmonary venous flow (Doppler). The IVC was not visualized . PERICARDIAL EFFUSION There is no evidence of significant pericardial effusion. Critical Notification Critical Value: No <Conclusion> The left ventricle is normal size. Left ventricle systolic function is normal. The Ejection Fraction is 60-65%. There is no significant aortic valvular stenosis. Doppler and Color Flow revealed no significant aortic regurgitation. Doppler and Color Flow revealed trace mitral regurgitation. Doppler and Color Flow revealed mild tricuspid regurgitation. The PA pressure was estimated at 38 mmHg.
[2016-08-12] MEDS ORDERED: AMLO5TAB2 PO (13:25)
--- NOTE | 2016-08-12 13:28 | PDOC3 ---
Discharge Summary [facility] Date of Admission: Aug 11, 2016 Discharge Date: Aug 12, 2016 Admitting Diagnosis 1. gastroenteritis 2. htn 3. possible gerd 4. hypokalemia 5. elevated troponin 2/2 2? Problems: Final Diagnosis Problems Medical Problems: (1) Generalized weakness Status: Acute (2) NSTEMI (non-ST elevated myocardial infarction) Status: Acute CONSULTS card Brief Hospital Course Mr. Gonzales is a 61 old M, NOT TAKING any home meds, has had diarrhea for a few days. comes to ER, wo chest pain, was found high troponin, which could be 2/2 HTN, altho only 150-160s. ECho done normal, card on board. pt feels good, no diarrhea anymore, dc home today if ok with card. amlodipine 5mg daily. dc time 35min GEN.: No apparent distress. Alert and oriented. HEENT: Head is normocephalic, atraumatic NECK: Supple. LUNGS: Clear to auscultation. HEART: RRR, S1, S2 present. Peripheral pulses intact ABDOMEN: Soft, nontender. Positive bowel sounds. EXTREMITIES: Without any cyanosis. NEUROLOGIC: Normal speech, normal tone PSYCHIATRIC: Normal affect, normal mood. SKIN: No ulcerations Problems: Disposition home CONDITION AT DISCHARGE: Improved Diet regular Scheduled Amlodipine Besylate (Amlodipine Besylate) 5 MG PO DAILY Follow Up pcp in2 weeks RIC ROGERS MD Aug 12, 2016 13:28
[2016-08-12 15:29] VITALS: BP 138/83
== END 2016-08-12 15:55 | disposition home or self-care (01) | DRG 281 ==
LOC: ER 03:13 → CVICU 05:15 → 2 SOUTH 08-12 12:36
PROVIDERS: ADMIT Internal Medicine; ATTEND Internal Medicine
DX: I21.4 Non-ST elevation (NSTEMI) myocardial infarction (principal); E87.2 Acidosis; A08.4 Viral intestinal infection, unspecified; I11.9 Hypertensive heart disease without heart failure; K21.9 Gastro-esophageal reflux disease without esophagitis; E87.6 Hypokalemia; E86.0 Dehydration; Z79.899 Other long term (current) drug therapy; Z82.49 Family history of ischemic heart disease and other diseases of the circulatory system
CPT/HCPCS: 36415; 71010; 80048; 80053; 81001; 83605; 83690; 83880; 84484; 85007; 85027; 87804; 93005; 93306; J7030; S0028

== ENCOUNTER 2017-05-16 21:58 | Inpatient (IN) | payer BC ==
[~2017-05-16] VITALS: Ht 185.4 cm; Wt 161.2 kg
[~2017-05-16 21:58] MED LIST: AMLO5TAB2 PO
[2017-05-16 22:29] LABS: BASO # 0.1 x10^3/uL (0.0-0.2); BASO % 1 % (0-3); EOS % 1 % (0-3); HEMATOCRIT 38.4 % (39.0-53.0); LYMPH # 2.7 x10^3/uL (1.0-4.8); LYMPH % 22 % (24-48); MEAN CORPUSCULAR HEMOGLOBIN 22 pg (25-35); MEAN CORPUSCULAR HGB CONC 31 g/dL (31-37); MEAN CORPUSCULAR VOLUME 71 fL (79-100); MONO % 8 % (0-9); NEUT % 69 % (31-73); PLATELET COUNT 203 x10^3/uL (140-400); RED BLOOD COUNT 5.42 x10^6/uL (4.30-5.70); RED CELL DISTRIBUTION WIDTH 15.1 % (11.5-14.5); WHITE BLOOD COUNT 12.7 x10^3/uL (4.0-11.0)
--- NOTE | 2017-05-16 22:36 | PHYS DOC ---
Past Medical History Past Medical History: GERD, Hypertension Past Surgical History: No Surgical History Alcohol Use: None Drug Use: None Adult General Chief Complaint Chief Complaint: LOWER EXT PAIN HPI HPI Patient is a 61 year old male who presents with complaint of lower extremity swelling and high blood pressure. Patient states that his blood pressure has been running very high over the past 2-3 weeks. Patient states on average his blood pressure readings have been above 170-180. Patient states he is on amlodipine therapy for treatment. Patient follows at [facility] with Dr. Hawkins. The patient denies any chest pain or headaches currently but does state that he has been having worsening dyspnea on exertion with normal activity and has been noticing worsening lower extremity edema. Patient denies any known history of congestive heart failure. Patient has had no associated fevers. Patient is also not on any diuretics. Due to worsening symptoms the patient came to the emergency department for evaluation. Review of Systems Review of Systems Constitutional: Denies fever or chills [] Eyes: Denies change in visual acuity, redness, or eye pain [] HENT: Denies nasal congestion or sore throat [] Respiratory: Shortness of breath, denies cough[] Cardiovascular: Lower extremity edema, dyspnea on exertion, denies chest pain[] GI: Denies abdominal pain, nausea, vomiting, bloody stools or diarrhea [] : Denies dysuria or hematuria [] Musculoskeletal: Denies back pain or joint pain [] Integument: Denies rash or skin lesions [] Neurologic: Denies headache, focal weakness or sensory changes [] All other systems were reviewed and found to be within normal limits, except as documented in this note. Current Medications Current Medications Current Medications Medications (Trade) Dose Ordered Sig/Cipriano Start Time Stop Time Status Last Admin Dose Admin Furosemide (Lasix) 40 mg 1X ONCE 05/16/17 23:00 05/16/17 23:01 DC 05/16/17 22:38 40 MG Nicardipine HCl 50 mg/Sodium Chloride 270 ml @ 0 mls/hr CONT PRN 05/16/17 22:30 05/16/17 22:42 25 MLS/HR Sodium Chloride 1,000 ml @ 50 mls/hr Q20H 05/16/17 23:00 05/17/17 18:59 05/16/17 22:40 50 MLS/HR Allergies Allergies Allergies Coded Allergies Type Severity Reaction Last Updated Verified No Known Drug Allergies 08/11/16 No Physical Exam Physical Exam Constitutional: Alert, afebrile, hypertensive, appears in minimal discomfort. [] HENT: Normocephalic, atraumatic, bilateral external ears normal, oropharynx moist, no oral exudates, nose normal. [] Eyes: PERRLA, EOMI, conjunctiva normal, no discharge. [] Neck: Normal range of motion, no tenderness, supple, no stridor. [] Cardiovascular:Heart rate regular rhythm, no murmur [] Lungs & Thorax: Mild restriction of air movement bilaterally, no wheezes, rales present in the bilateral lung bases[] Abdomen: Bowel sounds normal, soft, no tenderness, no masses, no pulsatile masses. [] Skin: Warm, dry, no erythema, no rash. [] Back: No tenderness, no CVA tenderness. [] Extremities: No tenderness, no cyanosis, no clubbing, ROM intact, 2+ pedal edema bilaterally. [] Neurologic: Alert and oriented X 3, normal motor function, normal sensory function, no focal deficits noted. [] Current Patient Data Vital Signs Vital Signs Date Time Temp Pulse Resp B/P (MAP) Pulse Ox O2 Delivery O2 Flow Rate FiO2 05/16/17 22:37 81 20 163/81 (108) 92 Room Air 05/16/17 22:01 98.2 98.2 Lab Values Laboratory Tests Test 05/16/17 22:10 White Blood Count 12.7 x10^3/uL (4.0-11.0) H Red Blood Count 5.42 x10^6/uL (4.30-5.70) Hemoglobin 12.0 g/dL (13.0-17.5) L Hematocrit 38.4 % (39.0-53.0) L Mean Corpuscular Volume 71 fL (79-100) L Mean Corpuscular Hemoglobin 22 pg (25-35) L Mean Corpuscular Hemoglobin Concent 31 g/dL (31-37) Red Cell Distribution Width 15.1 % (11.5-14.5) H Platelet Count 203 x10^3/uL (140-400) Neutrophils (%) (Auto) 69 % (31-73) Lymphocytes (%) (Auto) 22 % (24-48) L Monocytes (%) (Auto) 8 % (0-9) Eosinophils (%) (Auto) 1 % (0-3) Basophils (%) (Auto) 1 % (0-3) Neutrophils # (Auto) 8.7 x10^3uL (1.8-7.7) H Lymphocytes # (Auto) 2.7 x10^3/uL (1.0-4.8) Monocytes # (Auto) 1.0 x10^3/uL (0.0-1.1) Eosinophils # (Auto) 0.2 x10^3/uL (0.0-0.7) Basophils # (Auto) 0.1 x10^3/uL (0.0-0.2) Platelet Estimate Pending Sodium Level 144 mmol/L (136-145) Potassium Level 4.3 mmol/L (3.5-5.1) Chloride Level 106 mmol/L (98-107) Carbon Dioxide Level 28 mmol/L (21-32) Anion Gap 10 (6-14) Blood Urea Nitrogen 13 mg/dL (8-26) Creatinine 1.0 mg/dL (0.7-1.3) Estimated GFR (Cockcroft-Gault) 91.3 BUN/Creatinine Ratio 13 (6-20) Glucose Level 115 mg/dL (70-99) H Calcium Level 8.6 mg/dL (8.5-10.1) Total Bilirubin 0.4 mg/dL (0.2-1.0) Aspartate Amino Transferase (AST) 34 U/L (15-37) Alanine Aminotransferase (ALT) 47 U/L (16-63) Alkaline Phosphatase 79 U/L (46-116) Creatine Kinase 720 U/L (39-308) H Creatine Kinase MB (Mass) 6.4 ng/mL (0.0-3.6) H Creatine Kinase MB Relative Index 0.9 % (0-4) Troponin I Quantitative 0.143 ng/mL (0.000-0.055) XR-Tqw-G-Type Natriuretic Peptide 41 pg/mL (0-124) Total Protein 7.3 g/dL (6.4-8.2) Albumin 3.3 g/dL (3.4-5.0) L Albumin/Globulin Ratio 0.8 (1.0-1.7) L Laboratory Tests 05/16/17 22:10 Laboratory Tests 05/16/17 22:10 EKG EKG Interpreted by me: Heart rate 77, sinus rhythm, normal intervals, leftward axis , no acute ST/T-wave abnormalities present[] Radiology/Procedures Radiology/Procedures One view AP chest x-ray interpreted by me: Mild pulmonary vascular congestion, no effusions, normal cardiac silhouette Course & Med Decision Making Course & Med Decision Making Pertinent Labs and Imaging studies reviewed. (See chart for details) The patient was started on IV Cardene due to presence of lower show any swelling and dyspnea on exertion with critically elevated blood pressure. The patient was found to have a mild elevation in his cardiac enzymes including troponin level. The patient at this time states that he is feeling better as his blood pressure has improved to 170/81 on recheck. The patient will require admission to the hospital for treatment of malignant hypertension. I spoke with Dr. Fine who accepted care patient in hospital. A consult was placed to Dr. Barker of cardiology to follow patient in hospital. Critical care time excluding procedures: 45 minutes Dragon Disclaimer Dragon Disclaimer This electronic medical record was generated, in whole or in part, using a voice recognition dictation system. Departure Departure Impression: Primary Impression: Malignant hypertension Additional Impressions: Peripheral edema Dyspnea on exertion Elevated troponin level Disposition: ADMITTED INPATIENT Admitting Physician: Jourdan Fine Condition: GUARDED Referrals: UNKNOWN PCP NAME (PCP) Problem Qualifiers OLIVA SOTO MD May 16, 2017 22:36
[2017-05-16 22:41] LABS: CALCIUM 8.6 mg/dL (8.5-10.1); GFR 91.3; POTASSIUM 4.3 mmol/L (3.5-5.1)
[2017-05-16 22:49] LABS: ALBUMIN 3.3 g/dL (3.4-5.0); ALBUMIN/GLOBULIN RATIO 0.8 (1.0-1.7); TOTAL BILIRUBIN 0.4 mg/dL (0.2-1.0); TOTAL PROTEIN 7.3 g/dL (6.4-8.2)
[2017-05-16 22:55] LABS: CKMB MASS 6.4 ng/mL (0.0-3.6)
[2017-05-16] MEDS ORDERED: IV NORMAL SALINE 1000ML BAG 1,000 ML IV SCH ×2 (23:00→23:25)
[2017-05-16] MEDS ORDERED: FUROSEMIDE 40 MG/4 ML VIAL. IVP ONE (23:00)
[2017-05-16] MEDS ORDERED: ACETAMINOPHEN 325 MG TABLET. PO PRN (23:30)
[2017-05-16] MEDS ORDERED: ONDANSETRON PF 4 MG/2 ML VIAL. IV PRN (23:30)
[2017-05-17] VITALS (21 sets, daily range): BP systolic 109–185; BP diastolic 53–85
[2017-05-17] MEDS ORDERED: PANT40TA3 PO (01:04)
[2017-05-17] MEDS ORDERED: IBUPROFEN 800 MG TABLET. PO ONE (01:15)
[2017-05-17 04:05] LABS: MICROCYTOSIS MOD; PLT ESTIMATE ADEQUATE (ADEQUATE)
[2017-05-17 04:06] LABS: ANISOCYTOSIS SLIGHT; HYPOCHROMIA MOD
[2017-05-17 04:51] LABS: BASO % 0 % (0-3); EOS % 2 % (0-3); HEMATOCRIT 38.1 % (39.0-53.0); HEMOGLOBIN 12.1 g/dL (13.0-17.5); LYMPH # 2.6 x10^3/uL (1.0-4.8); LYMPH % 23 % (24-48); MEAN CORPUSCULAR HEMOGLOBIN 22 pg (25-35); MEAN CORPUSCULAR HGB CONC 32 g/dL (31-37); MEAN CORPUSCULAR VOLUME 70 fL (79-100); MONO % 8 % (0-9); NEUT % 67 % (31-73); PLATELET COUNT 197 x10^3/uL (140-400); RED BLOOD COUNT 5.42 x10^6/uL (4.30-5.70); RED CELL DISTRIBUTION WIDTH 15.4 % (11.5-14.5); WHITE BLOOD COUNT 11.4 x10^3/uL (4.0-11.0)
[2017-05-17 05:11] LABS: CALCIUM 8.4 mg/dL (8.5-10.1); CREATININE 1.1 mg/dL (0.7-1.3); GFR 81.8; POTASSIUM 3.5 mmol/L (3.5-5.1)
[2017-05-17] MEDS ORDERED: PNEUMOC CONJ VACC 23-VALENT 0.5 ML VIAL. VAX IM ONE (09:00)
[2017-05-17] MEDS ORDERED: POTASSIUM CHLORIDE 20 MEQ TABLET.ER. PO ONE ×2 (09:00→15:00)
[2017-05-17] MEDS ORDERED: PNEUMOCOCCAL VAX SCREEN BY RX. MC ONE (09:00)
[2017-05-17] MEDS ORDERED: INFLUENZA VAX SCREEN BY RX. MC ONE (09:00)
[2017-05-17] MEDS ORDERED: FLU VACC QS2017-18 (36MOS+)/PF 0.5 ML SYRINGE. VAX IM ONE (09:00)
--- NOTE | 2017-05-17 09:14 | PDOC1 ---
History and Physical Date of Admission Date of Admission DATE: 05/17/17 TIME: 09:11 Identification/Chief Complaint Chief Complaint le edema Problems: Source Source: Chart review, Patient History of Present Illness History of Present Illness Mr. Gonzales, is a 61 year old male admit for new lower extremity swelling and high blood pressure. He had some Leg edema last week, and a doctor told him that can be a side effect of the Norvasc, no he stopped the norvasc . BP then running natali, and new dyspnea, . Patient follows at [facility] with Dr. Hawkins. The patient denies any chest pain or headaches currently but does state that he has been having worsening dyspnea on exertion with normal activity and has been noticing worsening lower extremity edema. he had a lot of urine output overnight and feels improved today Past Medical History Cardiovascular: HTN Pulmonary: No pertinent hx GI: No pertinent hx Heme/Onc: No pertinent hx Hepatobiliary: No pertinent hx Psych: No pertinent hx Rheumatologic: No pertinent hx Infectious disease: No pertinent hx Past Surgical History Past Surgical History: Cholecystectomy Family History Family History: No Significant Social History Smoke: No ALCOHOL: none Current Problem List Problem List Problems Medical Problems: (1) Dyspnea on exertion Status: Acute (2) Elevated troponin level Status: Acute (3) Peripheral edema Status: Acute Problems: Current Medications Current Medications Current Medications Sodium Chloride 1,000 ml @ 50 mls/hr Q20H IV Last administered on 05/16/17 22:40; Start 05/16/17 at 23:00; Stop 05/17/17 at 18:59 Nicardipine HCl 50 mg/Sodium Chloride 270 ml @ 0 mls/hr CONT PRN IV SEE I/O RECORD Last administered on 05/16/17 22:42; Start 05/16/17 at 22:30 Furosemide (Lasix) 40 mg 1X ONCE IVP Last administered on 05/16/17 22:38; Start 05/16/17 at 23:00; Stop 05/16/17 at 23:01; Status DC Ondansetron HCl (Zofran) 4 mg PRN Q8HRS PRN IV NAUSEA/VOMITING; Start at 23:30; Stop 05/17/17 at 23:29 Sodium Chloride 1,000 ml @ 0 mls/hr Q0M IV ; Start 05/16/17 at 23:25; Stop at 23:24 Acetaminophen (Tylenol) 650 mg PRN Q4HRS PRN PO FEVER; Start 05/16/17 at 23:30 ; Stop 05/17/17 at 23:29 Info (Do NOT chart on this placeholder) 1 each 1X ONCE MC ; Start 05/17/17 at 09:00; Stop 05/17/17 at 09:01; Status UNV Pneumococcal Polyvalent Vaccine (Do NOT chart on this placeholder) 1 each 1X ONCE MC ; Start 05/17/17 at 09:00; Stop 05/17/17 at 09:01; Status UNV Influenza Virus Vaccine Quadrival (Fluarix Quad [id number] Syringe) 0.5 ml ONCE ONCE VAX IM ; Start 05/17/17 at 09:00; Stop 05/17/17 at 09:01 Pneumococcal Polyvalent Vaccine (Pneumovax 23) 0.5 ml ONCE ONCE VAX IM ; Start 05/17/17 at 09:00; Stop 05/17/17 at 09:01 Ibuprofen (Motrin) 800 mg 1X ONCE PO Last administered on 05/17/17t 01:06; Start 05/17/17 at 01:15; Stop 05/17/17 at 01:16; Status DC Active Scripts Active Reported Protonix (Pantoprazole Sodium) 40 Mg Tablet. 1 Tab PO PRN DAILY Allergies Allergies: Coded Allergies: No Known Drug Allergies (Unverified , 08/11/16) ROS General: No: Chills, Night Sweats, Fatigue, Malaise, Appetite, Other PSYCHOLOGICAL ROS: No: Anxiety, Behavioral Disorder, Concentration difficultie , Decreased libido, Depression, Disorientation, Hallucinations, Hostility, Irritablity, Memory difficulties, Mood Swings, Obsessive thoughts, Physical abuse, Sexual abuse, Sleep disturbances, Suicidal ideation, Other Eyes: No Blurry vision, No Decreased vision, No Double vision, No Dry eyes, No Excessive tearing, No Eye Pain, No Itchy Eyes, No Loss of vision, No Photophobia , No Scotomata, No Uses contacts, No Uses glasses, No Other HEENT: No: Heacaches, Visual Changes, Hearing change, Nasal congestion, Nasal discharge, Oral lesions, Sinus pain, Sore Throat, Epistaxis, Sneezing, Snoring, Tinnitus, Vertigo, Vocal changes, Other Respiratory: No: Cough, Hemoptysis, Orthopnea, Pleuritic Pain, Shortness of breath, SOB with excertion, Sputum Changes, Stridor, Tachypnea, Wheezing, Other Cardiovascular: yes Edema, No Chest Pain, No Palpitations, No Orthopnea, No Paroxysmal Noc. Dyspnea, No Lt Headedness, No Other Gastrointestinal: No Nausea, No Vomiting, No Abdominal Pain, No Diarrhea, No Constipation, No Melena, No Hematochezia, No Other Genitourinary: No Dysuria, No Frequency, No Incontinence, No Hematuria, No Retention, No Discharge, No Urgency, No Pain, No Flank Pain, No Other, No , No , No , No , No , No , No Musculoskeletal: Yes Joint Pain, No Gait Disturbance, No Joint Stiffness, No Joint Swelling, No Muscle Pain, No Muscular Weakness, No Pain In:, No Swelling In:, No Other Neurological: No Behavorial Changes, No Bowel/Bladder ControlChng, No Confusion , No Dizziness, No Gait Disturbance, No Headaches, No Impaired Coord/balance, No Memory Loss, No Numbness/Tingling, No Seizures, No Speech Problems, No Tremors, No Visual Changes, No Weakness, No Other Skin: Yes Dry Skin, No Eczema, No Hair Changes, No Lumps, No Mole Changes, No Mottling, No Nail Changes, No Pruritus, No Rash, No Skin Lesion Changes, No Other, No Acne Physical Exam General: Alert, Oriented X3, No acute distress HEENT: Atraumatic, EOMI, Mucous membr. moist/pink Lungs: Clear to auscultation, Normal air movement Heart: S1S2, no gallops, no murmurs Abdomen: Normal bowel sounds, Soft Rectal Exam: not examined Extremities: No cyanosis, No edema Skin: No rashes, No significant lesion Neuro: Normal speech, Normal tone, Cranial nerves 3-12 NL Psych/Mental Status: Mental status NL, Mood NL Vitals Vitals Vital Signs Date Time Temp Pulse Resp B/P (MAP) Pulse Ox O2 Delivery O2 Flow Rate FiO2 05/17/17 07:00 97.9 73 18 155/72 (99) 91 Room Air 97.9 Labs Labs Laboratory Tests Test 05/16/17 22:10 05/17/17 03:00 05/17/17 06:00 White Blood Count 12.7 x10^3/uL (4.0-11.0) 11.4 x10^3/uL (4.0-11.0) Red Blood Count 5.42 x10^6/uL (4.30-5.70) 5.42 x10^6/uL (4.30-5.70) Hemoglobin 12.0 g/dL (13.0-17.5) 12.1 g/dL (13.0-17.5) Hematocrit 38.4 % (39.0-53.0) 38.1 % (39.0-53.0) Mean Corpuscular Volume 71 fL (79-100) 70 fL (79-100) Mean Corpuscular Hemoglobin 22 pg (25-35) 22 pg (25-35) Mean Corpuscular Hemoglobin Concent 31 g/dL (31-37) 32 g/dL (31-37) Red Cell Distribution Width 15.1 % (11.5-14.5) 15.4 % (11.5-14.5) Platelet Count 203 x10^3/uL (140-400) 197 x10^3/uL (140-400) Neutrophils (%) (Auto) 69 % (31-73) 67 % (31-73) Lymphocytes (%) (Auto) 22 % (24-48) 23 % (24-48) Monocytes (%) (Auto) 8 % (0-9) 8 % (0-9) Eosinophils (%) (Auto) 1 % (0-3) 2 % (0-3) Basophils (%) (Auto) 1 % (0-3) 0 % (0-3) Neutrophils # (Auto) 8.7 x10^3uL (1.8-7.7) 7.7 x10^3uL (1.8-7.7) Lymphocytes # (Auto) 2.7 x10^3/uL (1.0-4.8) 2.6 x10^3/uL (1.0-4.8) Monocytes # (Auto) 1.0 x10^3/uL (0.0-1.1) 0.9 x10^3/uL (0.0-1.1) Eosinophils # (Auto) 0.2 x10^3/uL (0.0-0.7) 0.2 x10^3/uL (0.0-0.7) Basophils # (Auto) 0.1 x10^3/uL (0.0-0.2) 0.0 x10^3/uL (0.0-0.2) Platelet Estimate Adequate (ADEQUATE) Hypochromasia Mod Anisocytosis Slight Microcytosis Mod Sodium Level 144 mmol/L (136-145) 142 mmol/L (136-145) Potassium Level 4.3 mmol/L (3.5-5.1) 3.5 mmol/L (3.5-5.1) Chloride Level 106 mmol/L (98-107) 104 mmol/L (98-107) Carbon Dioxide Level 28 mmol/L (21-32) 29 mmol/L (21-32) Anion Gap 10 (6-14) 9 (6-14) Blood Urea Nitrogen 13 mg/dL (8-26) 13 mg/dL (8-26) Creatinine 1.0 mg/dL (0.7-1.3) 1.1 mg/dL (0.7-1.3) Estimated GFR (Cockcroft-Gault) 91.3 81.8 BUN/Creatinine Ratio 13 (6-20) Glucose Level 115 mg/dL (70-99) 110 mg/dL (70-99) Calcium Level 8.6 mg/dL (8.5-10.1) 8.4 mg/dL (8.5-10.1) Total Bilirubin 0.4 mg/dL (0.2-1.0) Aspartate Amino Transf (AST/SGOT) 34 U/L (15-37) Alanine Aminotransferase (ALT/SGPT) 47 U/L (16-63) Alkaline Phosphatase 79 U/L (46-116) Creatine Kinase 720 U/L (39-308) Creatine Kinase MB (Mass) 6.4 ng/mL (0.0-3.6) Creatine Kinase MB Relative Index 0.9 % (0-4) Troponin I Quantitative 0.143 ng/mL (0.000-0.055) 0.136 ng/mL (0.000-0.055) 0.130 ng/mL (0.000-0.055) TI-Mye-O-Type Natriuretic Peptide 41 pg/mL (0-124) Total Protein 7.3 g/dL (6.4-8.2) Albumin 3.3 g/dL (3.4-5.0) Albumin/Globulin Ratio 0.8 (1.0-1.7) Laboratory Tests Test 05/16/17 22:10 05/17/17 03:00 05/17/17 06:00 White Blood Count 12.7 x10^3/uL (4.0-11.0) 11.4 x10^3/uL (4.0-11.0) Red Blood Count 5.42 x10^6/uL (4.30-5.70) 5.42 x10^6/uL (4.30-5.70) Hemoglobin 12.0 g/dL (13.0-17.5) 12.1 g/dL (13.0-17.5) Hematocrit 38.4 % (39.0-53.0) 38.1 % (39.0-53.0) Mean Corpuscular Volume 71 fL (79-100) 70 fL (79-100) Mean Corpuscular Hemoglobin 22 pg (25-35) 22 pg (25-35) Mean Corpuscular Hemoglobin Concent 31 g/dL (31-37) 32 g/dL (31-37) Red Cell Distribution Width 15.1 % (11.5-14.5) 15.4 % (11.5-14.5) Platelet Count 203 x10^3/uL (140-400) 197 x10^3/uL (140-400) Neutrophils (%) (Auto) 69 % (31-73) 67 % (31-73) Lymphocytes (%) (Auto) 22 % (24-48) 23 % (24-48) Monocytes (%) (Auto) 8 % (0-9) 8 % (0-9) Eosinophils (%) (Auto) 1 % (0-3) 2 % (0-3) Basophils (%) (Auto) 1 % (0-3) 0 % (0-3) Neutrophils # (Auto) 8.7 x10^3uL (1.8-7.7) 7.7 x10^3uL (1.8-7.7) Lymphocytes # (Auto) 2.7 x10^3/uL (1.0-4.8) 2.6 x10^3/uL (1.0-4.8) Monocytes # (Auto) 1.0 x10^3/uL (0.0-1.1) 0.9 x10^3/uL (0.0-1.1) Eosinophils # (Auto) 0.2 x10^3/uL (0.0-0.7) 0.2 x10^3/uL (0.0-0.7) Basophils # (Auto) 0.1 x10^3/uL (0.0-0.2) 0.0 x10^3/uL (0.0-0.2) Platelet Estimate Adequate (ADEQUATE) Hypochromasia Mod Anisocytosis Slight Microcytosis Mod Sodium Level 144 mmol/L (136-145) 142 mmol/L (136-145) Potassium Level 4.3 mmol/L (3.5-5.1) 3.5 mmol/L (3.5-5.1) Chloride Level 106 mmol/L (98-107) 104 mmol/L (98-107) Carbon Dioxide Level 28 mmol/L (21-32) 29 mmol/L (21-32) Anion Gap 10 (6-14) 9 (6-14) Blood Urea Nitrogen 13 mg/dL (8-26) 13 mg/dL (8-26) Creatinine 1.0 mg/dL (0.7-1.3) 1.1 mg/dL (0.7-1.3) Estimated GFR (Cockcroft-Gault) 91.3 81.8 BUN/Creatinine Ratio 13 (6-20) Glucose Level 115 mg/dL (70-99) 110 mg/dL (70-99) Calcium Level 8.6 mg/dL (8.5-10.1) 8.4 mg/dL (8.5-10.1) Total Bilirubin 0.4 mg/dL (0.2-1.0) Aspartate Amino Transf (AST/SGOT) 34 U/L (15-37) Alanine Aminotransferase (ALT/SGPT) 47 U/L (16-63) Alkaline Phosphatase 79 U/L (46-116) Creatine Kinase 720 U/L (39-308) Creatine Kinase MB (Mass) 6.4 ng/mL (0.0-3.6) Creatine Kinase MB Relative Index 0.9 % (0-4) Troponin I Quantitative 0.143 ng/mL (0.000-0.055) 0.136 ng/mL (0.000-0.055) 0.130 ng/mL (0.000-0.055) HA-Uvp-Z-Type Natriuretic Peptide 41 pg/mL (0-124) Total Protein 7.3 g/dL (6.4-8.2) Albumin 3.3 g/dL (3.4-5.0) Albumin/Globulin Ratio 0.8 (1.0-1.7) VTE Prophylaxis Ordered VTE Prophylaxis Devices: Yes VTE Pharmacological Prophylaxi: No Assessment/Plan Assessment/Plan accelerated htn, htn urgency troponinemia, possible type 2 demand ischemia, consult cardiology echo ordered, may need stress test htn morbid obesity, BMI 47 microcytic red cells without much anemia, check iron levels, he has had colonoscopy screening LIZBET REILLY MD May 17, 2017 09:13
[2017-05-17] MEDS ORDERED: ASPIRIN ENTERIC COATED 325 MG TABLET.DR. PO ONE ×2 (09:30→15:00)
[2017-05-17 10:01] LABS: % SAT IRON 15 % (15-34); IRON,SERUM 44 ug/dL (65-175)
--- NOTE | 2017-05-17 10:32 | RAD ---
AP PORTABLE CHEST Clinical Indication: shortness of breath today. Comparison: AP chest 08/11/2016. Findings: The cardiomediastinal silhouette is normal. Minimal linear scarring or atelectasis in the lung bases, similar to prior study. Lungs otherwise clear. There is no pneumothorax. No pleural effusion is appreciated. There is no acute bone abnormality. IMPRESSION: No acute cardiopulmonary process.
--- NOTE | 2017-05-17 11:10 | EKG ---
[facility] [address] [place] [address] Test Date: 2017-05-16 Test Time: 22:11:46 Pat Name: JINNY WYATT Department: Room: Gender: M [employer]: : 1955 Requested By: OLIVA SOTO Order Number: [id number] Reading MD: Measurements Intervals Ledbetter Rate: 77 P: 41 UT: 158 QRS: -3 QRSD: 86 T: 24 QT: 382 QTc: 434 Interpretive Statements SINUS RHYTHM ATRIAL PREMATURE COMPLEX(ES) LEFTWARD AXIS QRS(T) CONTOUR ABNORMALITY CONSIDER ANTEROSEPTAL MYOCARDIAL DAMAGE POSSIBLY ABNORMAL ECG No previous ECG available for comparison
--- NOTE | 2017-05-17 12:54 | PDOC2 ---
CONSULT Date of Consult Date of Consult DATE: 05/17/17 TIME: 12:53 Reason for Consult Reason for Consult: Malignant hypertension Referring Physician Referring Physician: Dr. Campbell Identification/Chief Complaint Chief Complaint Elevated blood pressure Problems: Source Source: Chart review, Patient History of Present Illness Reason for Visit: 61-year-old male was brought by family to ED secondary to severely elevated blood pressure when checked at home by his . He apparently had lower extremity edema recently and was told to decrease the dose of Norvasc. He also admitted that he has not been compliant with medications especially since the last 3 weeks. He denied any chest pain, orthopnea/PND, palpitations or syncope. Past Medical History Cardiovascular: HTN Pulmonary: No pertinent hx GI: No pertinent hx Heme/Onc: No pertinent hx Hepatobiliary: No pertinent hx Psych: No pertinent hx Rheumatologic: No pertinent hx Infectious disease: No pertinent hx Past Surgical History Past Surgical History: Cholecystectomy Family History Family History: No Significant Social History No ALCOHOL: none Current Problem List Problem List Problems Medical Problems: (1) Dyspnea on exertion Status: Acute (2) Elevated troponin level Status: Acute (3) Peripheral edema Status: Acute Current Medications Current Medications Current Medications Sodium Chloride 1,000 ml @ 50 mls/hr Q20H IV Last administered on 05/16/17 22:40; Start 05/16/17 at 23:00; Stop 05/17/17 at 18:59 Nicardipine HCl 50 mg/Sodium Chloride 270 ml @ 0 mls/hr CONT PRN IV SEE I/O RECORD Last administered on 05/17/17 09:23; Start 05/16/17 at 22:30 Furosemide (Lasix) 40 mg 1X ONCE IVP Last administered on 05/16/17 22:38; Start 05/16/17 at 23:00; Stop 05/16/17 at 23:01; Status DC Ondansetron HCl (Zofran) 4 mg PRN Q8HRS PRN IV NAUSEA/VOMITING; Start at 23:30; Stop 05/17/17 at 23:29 Sodium Chloride 1,000 ml @ 0 mls/hr Q0M IV ; Start 05/16/17 at 23:25; Stop at 23:24 Acetaminophen (Tylenol) 650 mg PRN Q4HRS PRN PO FEVER; Start 05/16/17 at 23:30 ; Stop 05/17/17 at 23:29 Info (Do NOT chart on this placeholder) 1 each 1X ONCE MC ; Start 05/17/17 at 09:00; Stop 05/17/17 at 09:01; Status UNV Pneumococcal Polyvalent Vaccine (Do NOT chart on this placeholder) 1 each 1X ONCE MC ; Start 05/17/17 at 09:00; Stop 05/17/17 at 09:01; Status UNV Influenza Virus Vaccine Quadrival (Fluarix Quad [id number] Syringe) 0.5 ml ONCE ONCE VAX IM ; Start 05/17/17 at 09:00; Stop 05/17/17 at 09:01; Status DC Pneumococcal Polyvalent Vaccine (Pneumovax 23) 0.5 ml ONCE ONCE VAX IM ; Start 05/17/17 at 09:00; Stop 05/17/17 at 09:01; Status DC Ibuprofen (Motrin) 800 mg 1X ONCE PO Last administered on 05/17/17t 01:06; Start 05/17/17 at 01:15; Stop 05/17/17 at 01:16; Status DC Potassium Chloride (Klor-Con) 40 meq 1X ONCE PO ; Start 05/17/17 at 09:00; Stop 05/17/17 at 09:05; Status DC Lisinopril (Prinivil) 20 mg DAILY PO ; Start 05/17/17 at 10:00 Aspirin (Ecotrin) 325 mg 1X ONCE PO ; Start 05/17/17 at 09:30; Stop 05/17/17 at 09:31; Status DC Aspirin (Ecotrin) 325 mg DAILYWBKFT PO ; Start 05/18/17 at 08:00 Enoxaparin Sodium (Lovenox Per Pharmacy Prophylaxis Dosing) 1 each PRN DAILY PRN MC SEE COMMENTS; Start 05/17/17 at 09:30 Carvedilol (Coreg) 6.25 mg BIDWMEALS PO ; Start 05/17/17 at 09:30 Enoxaparin Sodium (Lovenox 40mg Syringe) 40 mg BID SQ ; Start 05/17/17 at 10:00 Furosemide (Lasix) 20 mg DAILY PO ; Start 05/17/17 at 09:30 Active Scripts Active Reported Protonix (Pantoprazole Sodium) 40 Mg Tablet. 1 Tab PO PRN DAILY Allergies Allergies: Coded Allergies: No Known Drug Allergies (Unverified , 08/11/16) ROS PSYCHOLOGICAL ROS: No: Hallucinations Eyes: No Loss of vision HEENT: No: Epistaxis Respiratory: No: Hemoptysis, Shortness of breath Cardiovascular: No Chest Pain Gastrointestinal: No Vomiting, No Diarrhea Genitourinary: No Hematuria Musculoskeletal: Yes Swelling In: (bilateral bilateral lower extremities) Neurological: No Seizures Skin: No Rash Physical Exam General: Alert, Oriented X3 HEENT: Atraumatic, PERRLA Lungs: Clear to auscultation Heart: Regular rate, No murmurs Abdomen: Soft, No tenderness Extremities: Other (1-2+ pitting pedal edema) Psych/Mental Status: Mood NL Vitals VITALS Vital Signs Date Time Temp Pulse Resp B/P (MAP) Pulse Ox O2 Delivery O2 Flow Rate FiO2 05/17/17 10:50 97.8 76 18 156/71 (99) 94 Room Air 97.8 Labs Labs Laboratory Tests Test 05/16/17 22:10 05/17/17 03:00 05/17/17 06:00 White Blood Count 12.7 x10^3/uL (4.0-11.0) 11.4 x10^3/uL (4.0-11.0) Red Blood Count 5.42 x10^6/uL (4.30-5.70) 5.42 x10^6/uL (4.30-5.70) Hemoglobin 12.0 g/dL (13.0-17.5) 12.1 g/dL (13.0-17.5) Hematocrit 38.4 % (39.0-53.0) 38.1 % (39.0-53.0) Mean Corpuscular Volume 71 fL (79-100) 70 fL (79-100) Mean Corpuscular Hemoglobin 22 pg (25-35) 22 pg (25-35) Mean Corpuscular Hemoglobin Concent 31 g/dL (31-37) 32 g/dL (31-37) Red Cell Distribution Width 15.1 % (11.5-14.5) 15.4 % (11.5-14.5) Platelet Count 203 x10^3/uL (140-400) 197 x10^3/uL (140-400) Neutrophils (%) (Auto) 69 % (31-73) 67 % (31-73) Lymphocytes (%) (Auto) 22 % (24-48) 23 % (24-48) Monocytes (%) (Auto) 8 % (0-9) 8 % (0-9) Eosinophils (%) (Auto) 1 % (0-3) 2 % (0-3) Basophils (%) (Auto) 1 % (0-3) 0 % (0-3) Neutrophils # (Auto) 8.7 x10^3uL (1.8-7.7) 7.7 x10^3uL (1.8-7.7) Lymphocytes # (Auto) 2.7 x10^3/uL (1.0-4.8) 2.6 x10^3/uL (1.0-4.8) Monocytes # (Auto) 1.0 x10^3/uL (0.0-1.1) 0.9 x10^3/uL (0.0-1.1) Eosinophils # (Auto) 0.2 x10^3/uL (0.0-0.7) 0.2 x10^3/uL (0.0-0.7) Basophils # (Auto) 0.1 x10^3/uL (0.0-0.2) 0.0 x10^3/uL (0.0-0.2) Platelet Estimate Adequate (ADEQUATE) Hypochromasia Mod Anisocytosis Slight Microcytosis Mod Sodium Level 144 mmol/L (136-145) 142 mmol/L (136-145) Potassium Level 4.3 mmol/L (3.5-5.1) 3.5 mmol/L (3.5-5.1) Chloride Level 106 mmol/L (98-107) 104 mmol/L (98-107) Carbon Dioxide Level 28 mmol/L (21-32) 29 mmol/L (21-32) Anion Gap 10 (6-14) 9 (6-14) Blood Urea Nitrogen 13 mg/dL (8-26) 13 mg/dL (8-26) Creatinine 1.0 mg/dL (0.7-1.3) 1.1 mg/dL (0.7-1.3) Estimated GFR (Cockcroft-Gault) 91.3 81.8 BUN/Creatinine Ratio 13 (6-20) Glucose Level 115 mg/dL (70-99) 110 mg/dL (70-99) Calcium Level 8.6 mg/dL (8.5-10.1) 8.4 mg/dL (8.5-10.1) Total Bilirubin 0.4 mg/dL (0.2-1.0) Aspartate Amino Transf (AST/SGOT) 34 U/L (15-37) Alanine Aminotransferase (ALT/SGPT) 47 U/L (16-63) Alkaline Phosphatase 79 U/L (46-116) Creatine Kinase 720 U/L (39-308) Creatine Kinase MB (Mass) 6.4 ng/mL (0.0-3.6) Creatine Kinase MB Relative Index 0.9 % (0-4) Troponin I Quantitative 0.143 ng/mL (0.000-0.055) 0.136 ng/mL (0.000-0.055) 0.130 ng/mL (0.000-0.055) OY-Bag-G-Type Natriuretic Peptide 41 pg/mL (0-124) Total Protein 7.3 g/dL (6.4-8.2) Albumin 3.3 g/dL (3.4-5.0) Albumin/Globulin Ratio 0.8 (1.0-1.7) Iron Level 44 ug/dL (65-175) Total Iron Binding Capacity 288 ug/dL (250-450) Iron Saturation 15 % (15-34) Laboratory Tests Test 05/16/17 22:10 05/17/17 03:00 05/17/17 06:00 White Blood Count 12.7 x10^3/uL (4.0-11.0) 11.4 x10^3/uL (4.0-11.0) Red Blood Count 5.42 x10^6/uL (4.30-5.70) 5.42 x10^6/uL (4.30-5.70) Hemoglobin 12.0 g/dL (13.0-17.5) 12.1 g/dL (13.0-17.5) Hematocrit 38.4 % (39.0-53.0) 38.1 % (39.0-53.0) Mean Corpuscular Volume 71 fL (79-100) 70 fL (79-100) Mean Corpuscular Hemoglobin 22 pg (25-35) 22 pg (25-35) Mean Corpuscular Hemoglobin Concent 31 g/dL (31-37) 32 g/dL (31-37) Red Cell Distribution Width 15.1 % (11.5-14.5) 15.4 % (11.5-14.5) Platelet Count 203 x10^3/uL (140-400) 197 x10^3/uL (140-400) Neutrophils (%) (Auto) 69 % (31-73) 67 % (31-73) Lymphocytes (%) (Auto) 22 % (24-48) 23 % (24-48) Monocytes (%) (Auto) 8 % (0-9) 8 % (0-9) Eosinophils (%) (Auto) 1 % (0-3) 2 % (0-3) Basophils (%) (Auto) 1 % (0-3) 0 % (0-3) Neutrophils # (Auto) 8.7 x10^3uL (1.8-7.7) 7.7 x10^3uL (1.8-7.7) Lymphocytes # (Auto) 2.7 x10^3/uL (1.0-4.8) 2.6 x10^3/uL (1.0-4.8) Monocytes # (Auto) 1.0 x10^3/uL (0.0-1.1) 0.9 x10^3/uL (0.0-1.1) Eosinophils # (Auto) 0.2 x10^3/uL (0.0-0.7) 0.2 x10^3/uL (0.0-0.7) Basophils # (Auto) 0.1 x10^3/uL (0.0-0.2) 0.0 x10^3/uL (0.0-0.2) Platelet Estimate Adequate (ADEQUATE) Hypochromasia Mod Anisocytosis Slight Microcytosis Mod Sodium Level 144 mmol/L (136-145) 142 mmol/L (136-145) Potassium Level 4.3 mmol/L (3.5-5.1) 3.5 mmol/L (3.5-5.1) Chloride Level 106 mmol/L (98-107) 104 mmol/L (98-107) Carbon Dioxide Level 28 mmol/L (21-32) 29 mmol/L (21-32) Anion Gap 10 (6-14) 9 (6-14) Blood Urea Nitrogen 13 mg/dL (8-26) 13 mg/dL (8-26) Creatinine 1.0 mg/dL (0.7-1.3) 1.1 mg/dL (0.7-1.3) Estimated GFR (Cockcroft-Gault) 91.3 81.8 BUN/Creatinine Ratio 13 (6-20) Glucose Level 115 mg/dL (70-99) 110 mg/dL (70-99) Calcium Level 8.6 mg/dL (8.5-10.1) 8.4 mg/dL (8.5-10.1) Total Bilirubin 0.4 mg/dL (0.2-1.0) Aspartate Amino Transf (AST/SGOT) 34 U/L (15-37) Alanine Aminotransferase (ALT/SGPT) 47 U/L (16-63) Alkaline Phosphatase 79 U/L (46-116) Creatine Kinase 720 U/L (39-308) Creatine Kinase MB (Mass) 6.4 ng/mL (0.0-3.6) Creatine Kinase MB Relative Index 0.9 % (0-4) Troponin I Quantitative 0.143 ng/mL (0.000-0.055) 0.136 ng/mL (0.000-0.055) 0.130 ng/mL (0.000-0.055) KZ-Hay-F-Type Natriuretic Peptide 41 pg/mL (0-124) Total Protein 7.3 g/dL (6.4-8.2) Albumin 3.3 g/dL (3.4-5.0) Albumin/Globulin Ratio 0.8 (1.0-1.7) Iron Level 44 ug/dL (65-175) Total Iron Binding Capacity 288 ug/dL (250-450) Iron Saturation 15 % (15-34) Assessment/Plan Assessment/Plan 1. Accelerated hypertension: Secondary to noncompliance. Better controlled since admission. Titrate oral ant hypertensives and wean Cardene off as tolerated. Check 2-D echo to assess LV systolic function. 2. Mild acute on chronic diastolic heart failure secondary to uncontrolled hypertension. Improving with Lasix. 3. Slight troponin level elevation, most probably demand ischemia from accelerated hypertension. Rule out wall motion abnormalities with 2-D echo. We will consider ischemic evaluation in the form of stress test as an outpatient. Thank you for your consultation. ELISHA ALEXANDER MD May 17, 2017 12:54
[2017-05-17] MEDS: FUROSEMIDE 20 MG TABLET PO SCH (15:02)
[2017-05-17] MEDS: CARVEDILOL 6.25 MG TABLET. PO SCH ×2 (15:03→17:00)
[2017-05-17] MEDS: ENOXAPARIN 40 MG/0.4 ML SYRINGE. SQ SCH ×2 (15:03→20:22)
[2017-05-17] MEDS: LISINOPRIL 20 MG TABLET PO SCH (15:03)
[2017-05-18 02:53] VITALS: BP 134/60
[2017-05-18 04:31] LABS: BASO # 0.1 x10^3/uL (0.0-0.2); BASO % 1 % (0-3); EOS % 2 % (0-3); HEMATOCRIT 38.4 % (39.0-53.0); LYMPH # 2.7 x10^3/uL (1.0-4.8); LYMPH % 22 % (24-48); MEAN CORPUSCULAR HEMOGLOBIN 22 pg (25-35); MEAN CORPUSCULAR HGB CONC 31 g/dL (31-37); MEAN CORPUSCULAR VOLUME 71 fL (79-100); MONO % 8 % (0-9); NEUT % 67 % (31-73); PLATELET COUNT 204 x10^3/uL (140-400); RED BLOOD COUNT 5.42 x10^6/uL (4.30-5.70); RED CELL DISTRIBUTION WIDTH 15.2 % (11.5-14.5); WHITE BLOOD COUNT 12.3 x10^3/uL (4.0-11.0)
[2017-05-18 05:51] LABS: ALBUMIN/GLOBULIN RATIO 0.7 (1.0-1.7); CALCIUM 8.4 mg/dL (8.5-10.1); GFR 91.3; POTASSIUM 3.9 mmol/L (3.5-5.1); TOTAL BILIRUBIN 0.9 mg/dL (0.2-1.0); TOTAL PROTEIN 7.5 g/dL (6.4-8.2)
[2017-05-18 07:00] VITALS: BP 124/62
[2017-05-18] MEDS ORDERED: ASPIRIN ENTERIC COATED 325 MG TABLET.DR. PO SCH (08:00)
[2017-05-18] MEDS: FUROSEMIDE 20 MG TABLET PO SCH (08:40)
[2017-05-18] MEDS: ENOXAPARIN 40 MG/0.4 ML SYRINGE. SQ SCH (08:40)
[2017-05-18] MEDS: CARVEDILOL 6.25 MG TABLET. PO SCH (08:41)
[2017-05-18] MEDS: LISINOPRIL 20 MG TABLET PO SCH (08:42)
[2017-05-18] MEDS ORDERED: LISINOPRIL 20 MG TABLET PO ONE (10:00)
[2017-05-18] MEDS ORDERED: CARVEDILOL 6.25 MG TABLET. PO ONE (10:00)
--- NOTE | 2017-05-18 10:54 | PDOC ---
PROGRESS NOTES Subjective Subjective No new complaints. Objective Objective Vital Signs Date Time Temp Pulse Resp B/P (MAP) Pulse Ox O2 Delivery O2 Flow Rate FiO2 05/18/17 10:19 72 151/66 05/18/17 08:00 Room Air 05/18/17 07:00 97.7 18 96 97.7 Intake and Output 05/18/17 07:00 Intake Total 1560 ml Output Total 1200 ml Balance 360 ml Intake Oral 1450 ml IV Total 110 ml Output Urine Total 1200 ml # Voids 4 Physical Exam Abdomen: Soft, No tenderness Heart: Regular rate, No murmurs Extremities: Other (1-2+ pitting pedal edema) General: Alert, Oriented X3 HEENT: Atraumatic, PERRLA Lungs: Clear to auscultation Neuro: Normal speech, Normal tone, Cranial nerves 3-12 NL Psych/Mental Status: Mood NL Skin: No rashes, No significant lesion Assessment Assessment 1. Accelerated hypertension: Secondary to noncompliance. Blood pressure continues to be labile. Increase lisinopril to 40 mm daily and Coreg to 12.5 mg twice a day and try to wean Cardene off. Check 2-D echo to assess LV systolic function. 2. Mild acute on chronic diastolic heart failure secondary to uncontrolled hypertension. Improved with Lasix. 3. Slight troponin level elevation, most probably demand ischemia from accelerated hypertension. Rule out wall motion abnormalities with 2-D echo. We will consider ischemic evaluation in the form of stress test as an outpatient Plan Plan of Care Problems Medical Problems: (1) Dyspnea on exertion Status: Acute (2) Elevated troponin level Status: Acute (3) Peripheral edema Status: Acute Comment Review of Relevant I have reviewed the following items myranda (where applicable) has been applied. Labs Laboratory Tests Test 05/18/17 03:30 White Blood Count 12.3 x10^3/uL (4.0-11.0) Red Blood Count 5.42 x10^6/uL (4.30-5.70) Hemoglobin 12.0 g/dL (13.0-17.5) Hematocrit 38.4 % (39.0-53.0) Mean Corpuscular Volume 71 fL (79-100) Mean Corpuscular Hemoglobin 22 pg (25-35) Mean Corpuscular Hemoglobin Concent 31 g/dL (31-37) Red Cell Distribution Width 15.2 % (11.5-14.5) Platelet Count 204 x10^3/uL (140-400) Neutrophils (%) (Auto) 67 % (31-73) Lymphocytes (%) (Auto) 22 % (24-48) Monocytes (%) (Auto) 8 % (0-9) Eosinophils (%) (Auto) 2 % (0-3) Basophils (%) (Auto) 1 % (0-3) Neutrophils # (Auto) 8.2 x10^3uL (1.8-7.7) Lymphocytes # (Auto) 2.7 x10^3/uL (1.0-4.8) Monocytes # (Auto) 1.0 x10^3/uL (0.0-1.1) Eosinophils # (Auto) 0.2 x10^3/uL (0.0-0.7) Basophils # (Auto) 0.1 x10^3/uL (0.0-0.2) Sodium Level 142 mmol/L (136-145) Potassium Level 3.9 mmol/L (3.5-5.1) Chloride Level 105 mmol/L (98-107) Carbon Dioxide Level 29 mmol/L (21-32) Anion Gap 8 (6-14) Blood Urea Nitrogen 13 mg/dL (8-26) Creatinine 1.0 mg/dL (0.7-1.3) Estimated GFR (Cockcroft-Gault) 91.3 BUN/Creatinine Ratio 13 (6-20) Glucose Level 105 mg/dL (70-99) Calcium Level 8.4 mg/dL (8.5-10.1) Total Bilirubin 0.9 mg/dL (0.2-1.0) Aspartate Amino Transf (AST/SGOT) 26 U/L (15-37) Alanine Aminotransferase (ALT/SGPT) 41 U/L (16-63) Alkaline Phosphatase 62 U/L (46-116) Total Protein 7.5 g/dL (6.4-8.2) Albumin 3.0 g/dL (3.4-5.0) Albumin/Globulin Ratio 0.7 (1.0-1.7) Medications Current Medications Aspirin (Ecotrin) 325 mg 1X ONCE PO Last administered on 05/17/17t 15:02; Start 05/17/17 at 15:00; Stop 05/17/17 at 15:01; Status DC Aspirin (Ecotrin) 325 mg DAILYWBKFT PO Last administered on 05/18/17 08:41; Start 05/18/17 at 08:00 Carvedilol (Coreg) 6.25 mg 1X ONCE PO Last administered on 05/18/17 10:19; Start 05/18/17 at 10:00; Stop 05/18/17 at 10:02; Status DC Lisinopril (Prinivil) 20 mg 1X ONCE PO Last administered on 05/18/17 10:19; Start 05/18/17 at 10:00; Stop 05/18/17 at 10:02; Status DC Potassium Chloride (Klor-Con) 40 meq 1X ONCE PO Last administered on 15:04; Start 05/17/17 at 15:00; Stop 05/17/17 at 15:01; Status DC Vitals/I & O Vital Sign - Last 24 Hours 05/17/17 05/17/17 05/17/17 05/17/17 12:00 13:00 14:00 15:00 Temp 98.3 98.3 Pulse 80 80 75 Resp 18 B/P (MAP) 154/76 (102) 180/84 (116) 161/79 (106) 161/79 (106) Pulse Ox 93 O2 Delivery Room Air 05/17/17 05/17/17 05/17/17 05/17/17 15:03 15:03 16:00 17:00 Pulse 76 76 66 74 B/P (MAP) 156/71 156/71 151/75 (100) 168/77 (107) 05/17/17 05/17/17 05/17/17 05/18/17 19:45 20:15 23:44 02:53 Temp 98.2 98.1 98.2 98.2 98.1 98.2 Pulse 70 69 68 Resp 20 18 18 B/P (MAP) 113/66 (82) 109/74 (86) 134/60 (84) Pulse Ox 94 92 95 O2 Delivery Room Air Room Air Room Air Room Air 05/18/17 05/18/17 05/18/17 05/18/17 07:00 08:00 08:41 08:42 Temp 97.7 97.7 Pulse 73 75 73 Resp 18 B/P (MAP) 124/62 (82) 162/83 162/83 Pulse Ox 96 O2 Delivery Room Air Room Air 05/18/17 05/18/17 10:19 10:19 Pulse 75 72 B/P (MAP) 151/66 151/66 Intake and Output 05/17/17 05/17/17 05/18/17 15:00 23:00 07:00 Intake Total 1450 ml 110 ml Output Total 1200 ml Balance 1450 ml -1090 ml ELISHA ALEXANDER MD May 18, 2017 10:54
[2017-05-18 10:55] VITALS: BP 151/66
[2017-05-18] MEDS ORDERED: oxyCODONE/APAP 5/325 1 TAB TABLET PO PRN (13:00)
[2017-05-18] MEDS ORDERED: LIDOCAINE (700MG/PATCH) PATCH. TD SCH (13:00)
[2017-05-18] MEDS ORDERED: LOSA50TA2 PO (13:39)
[2017-05-18] MEDS ORDERED: FURO20TA3 PO (13:39)
[2017-05-18] MEDS ORDERED: CARV6.252 PO (13:39)
[2017-05-18] MEDS ORDERED: ASPI-482 PO (13:43)
[2017-05-18 15:00] VITALS: BP 131/77
[2017-05-18] MEDS ORDERED: CARVEDILOL 12.5 MG TABLET. PO SCH (17:00)
[2017-05-18 17:36] VITALS: BP 131/77
[2017-05-19] MEDS ORDERED: LISINOPRIL 40 MG TABLET. PO SCH (09:00)
== END 2017-05-18 18:51 | disposition home or self-care (01) | DRG 292 ==
LOC: ER 21:58 → 2 NORTH 23:10
PROVIDERS: ADMIT Internal Medicine; ATTEND Internal Medicine
DX: I11.0 Hypertensive heart disease with heart failure (principal); Z68.42 Body mass index [BMI] 45.0-49.9, adult; E66.01 Morbid (severe) obesity due to excess calories; I15.8 Other secondary hypertension; M79.89 Other specified soft tissue disorders; I50.33 Acute on chronic diastolic (congestive) heart failure; Z91.14 Patient's other noncompliance with medication regimen; Z91.19 Patient's noncompliance with other medical treatment and regimen; Z90.49 Acquired absence of other specified parts of digestive tract; Z79.899 Other long term (current) drug therapy
CPT/HCPCS: 36415; 71010; 80048; 80053; 82553; 83540; 83550; 83880; 84484; 85025; 93005; 96374; J1650; J1940; J7030; J7050; 99291-25

== ENCOUNTER 2017-10-24 17:49 | Inpatient (IN) | payer BC ==
[2017-10-24 18:40] LABS: BASO % 0 % (0-3); EOS % 0 % (0-3); HEMATOCRIT 36.1 % (39.0-53.0); HEMOGLOBIN 11.7 g/dL (13.0-17.5); LYMPH # 1.9 x10^3/uL (1.0-4.8); LYMPH % 10 % (24-48); MEAN CORPUSCULAR HEMOGLOBIN 23 pg (25-35); MEAN CORPUSCULAR HGB CONC 32 g/dL (31-37); MEAN CORPUSCULAR VOLUME 70 fL (79-100); MONO # 1.9 x10^3/uL (0.0-1.1); MONO % 11 % (0-9); NEUT # 14.2 x10^3uL (1.8-7.7); NEUT % 79 % (31-73); PLATELET COUNT 163 x10^3/uL (140-400); RED BLOOD COUNT 5.15 x10^6/uL (4.30-5.70); RED CELL DISTRIBUTION WIDTH 14.5 % (11.5-14.5); WHITE BLOOD COUNT 18.1 x10^3/uL (4.0-11.0)
[2017-10-24 18:41] LABS: ADD MAN DIFF? YES
[2017-10-24 18:51] LABS: INR 1.2 (0.8-1.1); PROTHROMBIN TIME PATIENT 14.4 SEC (11.7-14.0)
[2017-10-24 18:52] LABS: ANION GAP 8 (6-14); BLOOD UREA NITROGEN 16 mg/dL (8-26); BUN/CREATININE RATIO 11 (6-20); CALCIUM 8.8 mg/dL (8.5-10.1); CARBON DIOXIDE 28 mmol/L (21-32); CHLORIDE 100 mmol/L (98-107); CREATININE 1.4 mg/dL (0.7-1.3); GFR 61.7; GLUCOSE 130 mg/dL (70-99); POTASSIUM 3.3 mmol/L (3.5-5.1); SODIUM 136 mmol/L (136-145)
[2017-10-24 18:59] LABS: ALBUMIN 2.9 g/dL (3.4-5.0); ALBUMIN/GLOBULIN RATIO 0.6 (1.0-1.7); ALK PHOS 69 U/L (46-116); ALT (SGPT) 55 U/L (16-63); AST (SGOT) 64 U/L (15-37); TOTAL BILIRUBIN 1.3 mg/dL (0.2-1.0); TOTAL PROTEIN 7.9 g/dL (6.4-8.2)
[2017-10-24] MEDS: IPRATRPIUM/ALBUTEROL 0.5/2.5MG 3 ML NEBU. NEB (19:00)
[2017-10-24] MEDS: IV NORMAL SALINE 1000ML BAG 1,000 ML IV ×3 (19:03→23:07)
[2017-10-24] MEDS: ACETAMINOPHEN 500 MG TABLET PO (19:20)
[2017-10-24 19:27] LABS: % BANDS 16 % (0-9); % LYMPHS 14 % (24-48); % MONOS 5 % (0-10); % SEGS 65 % (35-66); PLT ESTIMATE ADEQUATE (ADEQUATE)
[2017-10-24 19:28] LABS: ANISOCYTOSIS SLIGHT; HYPOCHROMIA MOD; MICROCYTOSIS MOD
[2017-10-24] MEDS: AZITHROMYCIN 500 MG in IV NORMAL SALINE 250ML 250 ML IV (20:15)
[2017-10-24] MEDS ORDERED: ONDANSETRON PF 4 MG/2 ML VIAL. IV (20:15)
[2017-10-24 22:02] LABS: BILIRUBIN,URINE SMALL (NEG); CLARITY,URINE CLEAR; COLOR,URINE YELLOW; GLUCOSE,URINE NEGATIVE (NEG); NITRITE,URINE NEGATIVE (NEG); PH,URINE 5.5; PROTEIN,URINE NEGATIVE (NEG-TRACE)
[2017-10-24 22:10] LABS: BACTERIA,URINE FEW /HPF (0-FEW); SQUAMOUS EPITHELIAL CELL,UR FEW /LPF
[2017-10-24] MEDS: cefTRIAXone IV Push 1 GM VIAL. IVP (23:07)
[2017-10-25 02:14] LABS: LACTIC ACID 1.4 mmol/L (0.4-2.0); TROPONINI 0.025 ng/mL (0.000-0.055)
[2017-10-25] MEDS: ACETAMINOPHEN 325 MG TABLET. PO (04:53)
[2017-10-25] MEDS: IV NORMAL SALINE 1000ML BAG 1,000 ML IV ×2 (04:53→16:37)
[2017-10-25 04:58] LABS: ADD MAN DIFF? NO
[2017-10-25 05:15] LABS: BASO % 0 % (0-3); EOS # 0.1 x10^3/uL (0.0-0.7); EOS % 0 % (0-3); HEMATOCRIT 34.4 % (39.0-53.0); LYMPH # 1.2 x10^3/uL (1.0-4.8); LYMPH % 8 % (24-48); MEAN CORPUSCULAR HEMOGLOBIN 23 pg (25-35); MEAN CORPUSCULAR HGB CONC 32 g/dL (31-37); MEAN CORPUSCULAR VOLUME 70 fL (79-100); MONO % 13 % (0-9); NEUT # 12.1 x10^3uL (1.8-7.7); NEUT % 79 % (31-73); PLATELET COUNT 151 x10^3/uL (140-400); RED BLOOD COUNT 4.89 x10^6/uL (4.30-5.70); RED CELL DISTRIBUTION WIDTH 14.6 % (11.5-14.5); WHITE BLOOD COUNT 15.3 x10^3/uL (4.0-11.0)
[2017-10-25 05:44] LABS: ALBUMIN 2.5 g/dL (3.4-5.0); ALBUMIN/GLOBULIN RATIO 0.5 (1.0-1.7); ALK PHOS 66 U/L (46-116); ALT (SGPT) 53 U/L (16-63); ANION GAP 10 (6-14); AST (SGOT) 72 U/L (15-37); BLOOD UREA NITROGEN 15 mg/dL (8-26); BUN/CREATININE RATIO 14 (6-20); CALCIUM 8.2 mg/dL (8.5-10.1); CARBON DIOXIDE 24 mmol/L (21-32); CHLORIDE 103 mmol/L (98-107); CREATININE 1.1 mg/dL (0.7-1.3); GFR 81.5; GLUCOSE 114 mg/dL (70-99); POTASSIUM 3.3 mmol/L (3.5-5.1); SODIUM 137 mmol/L (136-145); TOTAL BILIRUBIN 1.2 mg/dL (0.2-1.0); TOTAL PROTEIN 7.1 g/dL (6.4-8.2)
[2017-10-25] MEDS: PROMETH/CODEINE 6.25/10MG 5 ML SYRUP. PO ×2 (06:18→20:38)
[2017-10-25] MEDS: oxyCODONE/APAP 5/325 1 TAB TABLET PO ×2 (06:19→20:38)
[2017-10-25] MEDS: CARVEDILOL 12.5 MG TABLET. PO ×2 (08:52→16:38)
[2017-10-25] MEDS: LOSARTAN POTASSIUM 50 MG TABLET. PO (08:52)
[2017-10-25] MEDS: PANTOPRAZOLE 40 MG TABLET.DR. PO (08:52)
[2017-10-25] MEDS: FUROSEMIDE 20 MG TABLET PO (08:53)
[2017-10-25] MEDS: amLODIPine BESYLATE 5 MG TABLET PO (08:53)
[2017-10-25] MEDS: ASPIRIN ENTERIC COATED 81 MG TABLET.DR. PO (08:53)
[2017-10-25] MEDS: IPRATRPIUM/ALBUTEROL 0.5/2.5MG 3 ML NEBU. NEB ×4 (08:58→20:09)
[2017-10-25] MEDS: POTASSIUM CHLORIDE 20 MEQ TABLET.ER. PO (15:06)
[2017-10-25] MEDS: LACTOBACILLUS RHAMNOSUS GG 1 CAPSULE. PO (20:38)
[2017-10-25] MEDS: AZITHROMYCIN 250 MG TABLET. PO (20:39)
[2017-10-26] MEDS: cefTRIAXone IV Push 1 GM VIAL. IVP ×2 (00:02→22:54)
[2017-10-26 04:48] LABS: HEMATOCRIT 32.6 % (39.0-53.0); HEMOGLOBIN 10.4 g/dL (13.0-17.5); MEAN CORPUSCULAR HEMOGLOBIN 23 pg (25-35); MEAN CORPUSCULAR HGB CONC 32 g/dL (31-37); MEAN CORPUSCULAR VOLUME 70 fL (79-100); PLATELET COUNT 161 x10^3/uL (140-400); RED BLOOD COUNT 4.64 x10^6/uL (4.30-5.70); RED CELL DISTRIBUTION WIDTH 14.7 % (11.5-14.5)
[2017-10-26 05:22] LABS: ALBUMIN 2.4 g/dL (3.4-5.0); ALBUMIN/GLOBULIN RATIO 0.5 (1.0-1.7); ALK PHOS 67 U/L (46-116); ALT (SGPT) 71 U/L (16-63); ANION GAP 9 (6-14); AST (SGOT) 67 U/L (15-37); BLOOD UREA NITROGEN 15 mg/dL (8-26); BUN/CREATININE RATIO 13 (6-20); CALCIUM 8.1 mg/dL (8.5-10.1); CARBON DIOXIDE 26 mmol/L (21-32); CHLORIDE 103 mmol/L (98-107); CREATININE 1.2 mg/dL (0.7-1.3); GFR 73.8; GLUCOSE 111 mg/dL (70-99); POTASSIUM 3.3 mmol/L (3.5-5.1); SODIUM 138 mmol/L (136-145); TOTAL BILIRUBIN 0.8 mg/dL (0.2-1.0); TOTAL PROTEIN 7.3 g/dL (6.4-8.2)
[2017-10-26 07:23] LABS: SEDIMENTATION RATE 61 (0-15)
[2017-10-26] MEDS: IPRATRPIUM/ALBUTEROL 0.5/2.5MG 3 ML NEBU. NEB ×3 (07:27→19:45)
[2017-10-26] MEDS: PANTOPRAZOLE 40 MG TABLET.DR. PO (08:32)
[2017-10-26] MEDS: LACTOBACILLUS RHAMNOSUS GG 1 CAPSULE. PO ×2 (08:32→21:06)
[2017-10-26] MEDS: POTASSIUM CHLORIDE 20 MEQ TABLET.ER. PO ×2 (08:33→12:08)
[2017-10-26] MEDS: amLODIPine BESYLATE 5 MG TABLET PO (08:33)
[2017-10-26] MEDS: LOSARTAN POTASSIUM 50 MG TABLET. PO (08:33)
[2017-10-26] MEDS: ASPIRIN ENTERIC COATED 81 MG TABLET.DR. PO (08:34)
[2017-10-26] MEDS: CARVEDILOL 12.5 MG TABLET. PO ×2 (08:34→18:08)
[2017-10-26] MEDS: FUROSEMIDE 20 MG TABLET PO (08:34)
[2017-10-26] MEDS: PROMETH/CODEINE 6.25/10MG 5 ML SYRUP. PO (18:08)
[2017-10-26] MEDS: oxyCODONE/APAP 5/325 1 TAB TABLET PO (21:06)
[2017-10-26] MEDS: AZITHROMYCIN 250 MG TABLET. PO (21:06)
[2017-10-26] MEDS: diphenhydrAMINE HCL 25 MG CAPSULE PO (21:28)
[2017-10-26] MEDS: SODIUM CHLORIDE 0.65% NASAL SPRAY 45ML BOTTLE. NS (21:28)
[2017-10-27] MEDS: IPRATRPIUM/ALBUTEROL 0.5/2.5MG 3 ML NEBU. NEB ×3 (08:01→15:24)
[2017-10-27] MEDS: LACTOBACILLUS RHAMNOSUS GG 1 CAPSULE. PO (08:45)
[2017-10-27] MEDS: amLODIPine BESYLATE 5 MG TABLET PO (08:45)
[2017-10-27] MEDS: FUROSEMIDE 20 MG TABLET PO (08:46)
[2017-10-27] MEDS: PANTOPRAZOLE 40 MG TABLET.DR. PO (08:46)
[2017-10-27] MEDS: LOSARTAN POTASSIUM 50 MG TABLET. PO (08:46)
[2017-10-27] MEDS: ASPIRIN ENTERIC COATED 81 MG TABLET.DR. PO (08:47)
[2017-10-27] MEDS: POTASSIUM CHLORIDE 20 MEQ TABLET.ER. PO (08:47)
[2017-10-27] MEDS: CARVEDILOL 12.5 MG TABLET. PO ×2 (08:48→17:30)
[2017-10-27 14:23] LABS: HBcIGM CONFIRMATION Indeterminate (Negative); HCV ANTIBODY <0.1 s/co ratio (0.0-0.9); HEP A CONFIRMATION Negative (Negative); HEP B SURFACE AG Negative (Negative)
[2017-10-27] MEDS: PROMETH/CODEINE 6.25/10MG 5 ML SYRUP. PO (14:36)
[2017-10-27] MEDS ORDERED: traMADol 50 MG TABLET PO (15:00)
[2017-10-27] MEDS ORDERED: hydrALAZINE 20 MG/ML VIAL. IVP (15:00)
[2017-10-27] MEDS ORDERED: ACETAMINOPHEN 325 MG TABLET. PO (15:00)
[2017-10-27] MEDS ORDERED: DOCUSATE SODIUM 100 MG CAPSULE. PO (15:00)
[2017-10-27] MEDS ORDERED: ONDANSETRON PF 4 MG/2 ML VIAL. IV (15:00)
[2017-10-27] MEDS ORDERED: ALBUTEROL SULFATE 2.5 MG/3 ML NEBU. NEB (15:00)
[2017-10-27] MEDS ORDERED: MORPHINE SULFATE 4 MG/ML DISP.SYRIN. IV (15:00)
[2017-10-27] MEDS: AMOXICILLIN/K CLAV 875/125MG TABLET. PO (18:20)
== END 2017-10-27 19:00 | disposition home or self-care (01) | DRG 193 ==
LOC: ER 17:49 → 5 SOUTH 20:10
DX: J18.9 Pneumonia, unspecified organism (principal); J96.01 Acute respiratory failure with hypoxia; M48.54XA Collapsed vertebra, not elsewhere classified, thoracic region, initial encounter for fracture; Z68.42 Body mass index [BMI] 45.0-49.9, adult; J98.11 Atelectasis; K76.0 Fatty (change of) liver, not elsewhere classified; I10 Essential (primary) hypertension; K21.9 Gastro-esophageal reflux disease without esophagitis; I25.10 Atherosclerotic heart disease of native coronary artery without angina pectoris; E87.6 Hypokalemia; E66.9 Obesity, unspecified; Z90.49 Acquired absence of other specified parts of digestive tract; Y93.89 Activity, other specified; Y92.89 Other specified places as the place of occurrence of the external cause; Y99.8 Other external cause status; Z82.49 Family history of ischemic heart disease and other diseases of the circulatory system; Z83.3 Family history of diabetes mellitus
CPT/HCPCS: 36415; 71045; 71250; 76700; 80053; 80074; 81001; 83605; 84484; 85007; 85025; 85027; 85610; 85651; 87040; 87086; 93005; 94618; 94640; 94760; 96361; 96365; 96366; 99285; 99285-25; J0456; J0696; J7030; J7050; J7620; Q0144; Q0163

== ENCOUNTER → 2018-12-02 | Outpatient (CLI) | payer MEDICARE, BC ==
[2017-10-27 17:30] VITALS: BP 139/75
[~2018-12-02] MED LIST changes: +AMLO10TA8 PO; +AMLO5TAB10 PO; -AMLO5TAB2 PO; +AMOX1TAB11 PO; +ASPI-482 PO; +CARV12.5 PO; +CARV6.2511 PO; +FURO20TA3 PO; +LOSA-73 PO; +LOSA100T14 PO; +OMEP40CA5 PO; +PANT40TA77 PO; +PROM118S5 PO
--- NOTE | 2018-12-02 15:56 | RAD ---
Examination: VENOUS LOWER EXTREMITY RIGHT History: Right leg swelling Comparison/Correlation: None FINDINGS: Right lower extremity duplex venous ultrasound exam was performed. Grayscale, color Doppler, and spectral Doppler imaging was performed. Compression and augmentation was performed. The right common femoral vein, superficial femoral vein, popliteal vein, posterior tibial veins and greater saphenous vein are normal with no evidence of deep venous thrombus. Normal compressibility and augmentation is evident. IMPRESSION: Normal right lower extremity duplex ultrasound exam. No evidence of deep venous thrombus involving the right lower extremity. Electronically signed by: Fadi Reddy MD (12/02/2018 3:53 PM) [facility]
== END | disposition home or self-care (01) ==
LOC: US 14:47
PROVIDERS: ATTEND Internal Medicine Hematology & Oncology
DX: M79.89 Other specified soft tissue disorders (principal); D50.9 Iron deficiency anemia, unspecified
CPT/HCPCS: 93971

== ENCOUNTER → 2019-01-07 | Outpatient (CLI) | payer MEDICARE, BC ==
[2017-10-27 17:30] VITALS: BP 139/75
--- NOTE | 2019-01-07 15:44 | CARD ---
MR#: [id number] Date of Study: 01/07/2019 Ordering Physician: ELISHA RAMIREZ, Referring Physician: ELISHA RAMIREZ Tech: April Fernandez RDCS APPROVED REPORT EXAM: Two-dimensional and M-mode echocardiogram with Doppler and color Doppler. Other Information Quality : Technically LimitedHR: 65bpm Rhythm : NSRTechnically limited study due to body habitus. INDICATION Hypertension/HCVD 2D DIMENSIONS RVDd3.1 (2.9-3.5cm)Left Atrium(2D)3.5 (1.6-4.0cm) IVSd1.1 (0.7-1.1cm)Aortic Root(2D)3.6 (2.0-3.7cm) LVDd4.9 (3.9-5.9cm)LVOT Diameter2.4 (1.8-2.4cm) PWd1.1 (0.7-1.1cm)LVDs2.9 (2.5-4.0cm) FS (%) 39.9 %SV77.5 ml LVEF(%)65.0 (>50%) Aortic Valve AoV Peak Clint.115.2cm/sAoV VTI26.9cm AO Peak GR.5.3mmHgLVOT Peak Clint.80.7cm/s AO Mean GR.2mmHgAVA (VMAX)3.14cm2 REYNALDO (VTI)3.00cm2 Mitral Valve MV E Fhcbbgum09.0cm/sMV DECEL [id number] MV A Hkshygvw05.0cm/sE/A Ratio0.9 Pulmonary Valve PV Peak Wzdttbqy457.5cm/s Tricuspid Valve TR P. Exlkoupa667kg/sRAP MKVPXBDW5dwWc TR Peak Gr.00flXlIBDU22seZk LEFT VENTRICLE The left ventricle is normal size. There is mild concentric left ventricular hypertrophy. The left ve ntricular systolic function is normal. The Ejection Fraction is 60-65%. There is normal LV segmental wall motion. Transmitral Doppler flow pattern is Grade I-abnormal relaxation pattern. RIGHT VENTRICLE The right ventricle is normal size. There is normal right ventricular wall thickness. The right ventr icular systolic function is normal. ATRIA The left atrium size is normal. The right atrium size is normal. The interatrial septum is intact wit h no evidence for an atrial septal defect or patent foramen ovale as noted on 2-D or Doppler imaging. AORTIC VALVE The aortic valve is normal in structure and function. The aortic valve is trileaflet. Doppler and Col or Flow revealed no significant aortic regurgitation. There is no significant aortic valvular stenosi s. MITRAL VALVE The mitral valve is normal in structure and function. There is no evidence of mitral valve prolapse. There is no mitral valve stenosis. Doppler and Color-flow revealed trace mitral regurgitation. TRICUSPID VALVE The tricuspid valve is normal in structure and function. Doppler and Color Flow revealed mild tricusp id regurgitation. There is no tricuspid valve stenosis. GREAT VESSELS The aortic root is normal in size. The ascending aorta is Mildly dilated. The IVC was not visualized. PERICARDIAL EFFUSION There is no evidence of significant pericardial effusion. Critical Notification Critical Value: No <Conclusion> The left ventricular systolic function is normal. The Ejection Fraction is 60-65%. There is normal LV segmental wall motion. Transmitral Doppler flow pattern is Grade I-abnormal relaxation pattern. Trace mitral regurgitation. Mild tricuspid regurgitation. There is no evidence of significant pericardial effusion. Signed by : Elisha Ramirez, Electronically Approved : 01/07/2019 15:44:00
== END | disposition home or self-care (01) ==
LOC: ECHO 13:10
PROVIDERS: ATTEND Internal Medicine Cardiovascular Disease
DX: I36.1 Nonrheumatic tricuspid (valve) insufficiency (principal); I10 Essential (primary) hypertension; Z86.79 Personal history of other diseases of the circulatory system
CPT/HCPCS: 93306

== ENCOUNTER 2019-02-23 19:13 | Emergency (ER) | payer MEDICARE, BC ==
[~2019-02-23] VITALS: Ht 185.4 cm; Wt 166.9 kg
[~2019-02-23 19:13] MED LIST changes: +OMEP40CA45 PO; -OMEP40CA5 PO
--- NOTE | 2019-02-23 20:02 | PHYS DOC ---
Past Medical History Past Medical History: GERD, Hypertension Past Surgical History: Cholecystectomy Alcohol Use: None Drug Use: None Adult General Chief Complaint Chief Complaint: LOWER EXTREMITY EDEMA HPI HPI 63 male presents to the emergency department with complaints of lower extremity swelling, shortness breath with exertion. Patient states this was an ongoing times proffer 3 months he is currently on Lasix 20 mg twice a day was was increased. He denies any chest pain, nausea, vomiting, abdominal pain. States given his exertion he was concerned about fluid on his lungs versus other cardiac concern. Nothing makes symptoms better, patient states he sleeps proffer 3 pillows at home which has not changed. Nothing makes SOB better. Review of Systems Review of Systems Constitutional: Denies fever or chills [] Eyes: Denies change in visual acuity, redness, or eye pain [] HENT: Denies nasal congestion or sore throat [] Respiratory: cough/sob Cardiovascular: No additional information not addressed in HPI [] GI: Denies abdominal pain, nausea, vomiting, bloody stools or diarrhea [] Musculoskeletal: Denies back pain or joint pain [] Neurologic: Denies headache, focal weakness or sensory changes [] All other systems were reviewed and found to be within normal limits, except as documented in this note. Current Medications Current Medications Current Medications Medications (Trade) Dose Ordered Sig/Cipriano Start Time Stop Time Status Last Admin Dose Admin Furosemide (Lasix) 40 mg 1X ONCE 02/23/19 22:30 02/23/19 22:31 Allergies Allergies Allergies Coded Allergies Type Severity Reaction Last Updated Verified No Known Drug Allergies 08/11/16 No Physical Exam Physical Exam Constitutional: Well developed, well nourished, no acute distress, non-toxic appearance. [] HENT: Normocephalic, atraumatic, bilateral external ears normal, oropharynx moist, no oral exudates, nose normal. [] Eyes: PERRLA, EOMI, conjunctiva normal, no discharge. [] Cardiovascular:Heart rate regular rhythm, no murmur [] Lungs & Thorax: Decreased breath sounds appreciated, no evidence of wheezes appreciated Abdomen: Bowel sounds normal, soft, no tenderness, no masses, no pulsatile masses. [] Skin: Warm, dry, no erythema, no rash. [] Extremities: No tenderness, no cyanosis, + edema. [] Neurologic: Alert and oriented X 3, no focal deficits noted. [] Psychologic: Affect normal, judgement normal, mood normal. [] Current Patient Data Vital Signs Vital Signs Date Time Temp Pulse Resp B/P (MAP) Pulse Ox O2 Delivery O2 Flow Rate FiO2 02/23/19 21:38 65 31 158/66 (96) 93 Room Air 02/23/19 19:56 99.5 99.5 Lab Values Laboratory Tests Test 02/23/19 20:30 White Blood Count 9.6 x10^3/uL (4.0-11.0) Red Blood Count 5.31 x10^6/uL (4.30-5.70) Hemoglobin 12.1 g/dL (13.0-17.5) L Hematocrit 37.4 % (39.0-53.0) L Mean Corpuscular Volume 71 fL (79-100) L Mean Corpuscular Hemoglobin 23 pg (25-35) L Mean Corpuscular Hemoglobin Concent 32 g/dL (31-37) Red Cell Distribution Width 15.2 % (11.5-14.5) H Platelet Count 178 x10^3/uL (140-400) Neutrophils (%) (Auto) 66 % (31-73) Lymphocytes (%) (Auto) 23 % (24-48) L Monocytes (%) (Auto) 10 % (0-9) H Eosinophils (%) (Auto) 1 % (0-3) Basophils (%) (Auto) 1 % (0-3) Neutrophils # (Auto) 6.3 x10^3/uL (1.8-7.7) Lymphocytes # (Auto) 2.2 x10^3/uL (1.0-4.8) Monocytes # (Auto) 0.9 x10^3/uL (0.0-1.1) Eosinophils # (Auto) 0.1 x10^3/uL (0.0-0.7) Basophils # (Auto) 0.1 x10^3/uL (0.0-0.2) Platelet Estimate Adequate (ADEQUATE) Poikilocytosis Slight Microcytosis Slight Ovalocytes Occ D-Dimer (Genevieve) 0.60 ug/mlFEU (0.00-0.50) H Sodium Level 143 mmol/L (136-145) Potassium Level 4.1 mmol/L (3.5-5.1) Chloride Level 106 mmol/L (98-107) Carbon Dioxide Level 28 mmol/L (21-32) Anion Gap 9 (6-14) Blood Urea Nitrogen 12 mg/dL (8-26) Creatinine 1.0 mg/dL (0.7-1.3) Estimated GFR (Cockcroft-Gault) 90.7 BUN/Creatinine Ratio 12 (6-20) Glucose Level 101 mg/dL (70-99) H Calcium Level 9.3 mg/dL (8.5-10.1) Total Bilirubin 0.5 mg/dL (0.2-1.0) Aspartate Amino Transferase (AST) 20 U/L (15-37) Alanine Aminotransferase (ALT) 31 U/L (16-63) Alkaline Phosphatase 62 U/L (46-116) Troponin I Quantitative 0.048 ng/mL (0.000-0.055) DF-Edy-A-Type Natriuretic Peptide 28 pg/mL (0-124) Total Protein 7.9 g/dL (6.4-8.2) Albumin 3.2 g/dL (3.4-5.0) L Albumin/Globulin Ratio 0.7 (1.0-1.7) L Laboratory Tests 02/23/19 20:30 Laboratory Tests 02/23/19 20:30 EKG EKG EKG reviewed heart rate 66, no evidence of acute ST or T wave change. Nonurgent EKG[] Interpretation Time: Interpretation time 2025 Radiology/Procedures Radiology/Procedures Chest xray wetread - no acute consolidation appreciated as compared to previous 10/24/17 [] Course & Med Decision Making Course & Med Decision Making Pertinent Labs and Imaging studies reviewed. (See chart for details) []63 male presents to the emergency department with complaints of lower extremity swelling, shortness breath with exertion. Patient states this was an ongoing times proffer 3 months he is currently on Lasix 20 mg twice a day was was increased. He denies any chest pain, nausea, vomiting, abdominal pain. States given his exertion he was concerned about fluid on his lungs versus other cardiac concern. Nothing makes symptoms better, patient states he sleeps proffer 3 pillows at home which has not changed. Nothing makes SOB better. Labs and imaging reviewed. D-dimer is 0.60 however with age-adjusted within normal limits, BNP 28, troponin 0.048. Discussed admission with patient however he declines recommended however discussion with his states he would like to be discharged home. Chest x-ray does not show any acute pleural effusion or consolidation (wet read). Lasix 40 mg IV 1. Plan for discharge. Discussed discharge precautions with regards to return regarding chest pain, shortness of breath or worsening symptoms. Discussed with patient's as well as bedside. Both are understanding. We discussed increasing his Lasix to 30 mg twice a day or 40 mg twice a day with follow up with his primary care physician. Dragon Disclaimer Dragon Disclaimer This electronic medical record was generated, in whole or in part, using a voice recognition dictation system. Departure Departure Impression: Primary Impression: Lower extremity edema Additional Impression: Dyspnea on exertion Disposition: HOME, SELF-CARE Condition: STABLE Referrals: BRETT MASCORRO NUT PROCESSING SUPERVISOR (PCP) Patient Instructions: Peripheral Edema, Shortness of Breath, [id number] Additional Instructions: Recommend follow up with PCP 3 - 5 days Return to the ER with worsening symptoms, intractable pain, fever, altered mental status Tylenol/Motrin as needed for pain CXR without evidence of acute consolidation, pleural effusion Recommend increasing lasix to 1.5 tabs po BID Lasix 40mg IV x 1 given in the ER Problem Qualifiers DAVIDE FITZPATRICK MD Feb 23, 2019 20:02
[2019-02-23 20:42] LABS: BASO # 0.1 x10^3/uL (0.0-0.2); BASO % 1 % (0-3); EOS # 0.1 x10^3/uL (0.0-0.7); EOS % 1 % (0-3); HEMATOCRIT 37.4 % (39.0-53.0); HEMOGLOBIN 12.1 g/dL (13.0-17.5); LYMPH # 2.2 x10^3/uL (1.0-4.8); LYMPH % 23 % (24-48); MEAN CORPUSCULAR HEMOGLOBIN 23 pg (25-35); MEAN CORPUSCULAR HGB CONC 32 g/dL (31-37); MEAN CORPUSCULAR VOLUME 71 fL (79-100); MONO # 0.9 x10^3/uL (0.0-1.1); MONO % 10 % (0-9); NEUT # 6.3 x10^3/uL (1.8-7.7); NEUT % 66 % (31-73); PLATELET COUNT 178 x10^3/uL (140-400); RED BLOOD COUNT 5.31 x10^6/uL (4.30-5.70); RED CELL DISTRIBUTION WIDTH 15.2 % (11.5-14.5); WHITE BLOOD COUNT 9.6 x10^3/uL (4.0-11.0)
[2019-02-23 20:53] LABS: CALCIUM 9.3 mg/dL (8.5-10.1); GFR 90.7; POTASSIUM 4.1 mmol/L (3.5-5.1)
[2019-02-23 20:59] LABS: ALBUMIN 3.2 g/dL (3.4-5.0); ALBUMIN/GLOBULIN RATIO 0.7 (1.0-1.7); TOTAL BILIRUBIN 0.5 mg/dL (0.2-1.0); TOTAL PROTEIN 7.9 g/dL (6.4-8.2)
[2019-02-23 21:11] LABS: MICROCYTOSIS SLIGHT; PLT ESTIMATE ADEQUATE (ADEQUATE); POIKILOCYTOSIS SLIGHT
[2019-02-23 21:12] LABS: OVALOCYTES OCC
[2019-02-23 21:38] VITALS: BP 158/66
[2019-02-23] MEDS ORDERED: FUROSEMIDE 40 MG/4 ML VIAL. IVP ONE (22:30)
--- NOTE | 2019-02-24 03:54 | RAD ---
EXAM: CHEST ONE VIEW. HISTORY: Shortness of breath. COMPARISON: 10/24/2017. FINDINGS: A frontal view of the chest is obtained. Linear opacities in the right base most likely indicate atelectasis. The right hemidiaphragm is mildly elevated. There is no pneumothorax or pleural effusion. The heart is not enlarged. There are atherosclerotic calcifications of the aorta. IMPRESSION: 1. Right basilar atelectasis. No confluent infiltrates. Electronically signed by: Roshan Menendez MD (02/24/2019 3:50 AM) [id number]
--- NOTE | 2019-02-24 07:02 | EKG ---
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
== END 2019-02-23 22:33 | disposition home or self-care (01) ==
LOC: ER 19:13
DX: R60.0 Localized edema (principal); R06.02 Shortness of breath; I10 Essential (primary) hypertension; K21.9 Gastro-esophageal reflux disease without esophagitis; Z90.49 Acquired absence of other specified parts of digestive tract
CPT/HCPCS: 36415; 71045; 80053; 83880; 84484; 85025; 85379; 93005; 96374; 99285; J1940

== ENCOUNTER → 2019-05-22 | Emergency (ER) | payer MEDICARE, BC ==
[~2019-05-22] VITALS: Ht 180.3 cm; Wt 164.7 kg
[~2019-05-22] MED LIST changes: +DEXAMETHASONE SOD PHOS 4 MG/ML VIAL IM ONE; +OSEL75CA PO
[2019-05-22 03:30] VITALS: BP 173/95
[2019-05-22 04:05] LABS: INFLUENZA A PATIENT POSITIVE (NEGATIVE); INFLUENZA B PATIENT NEGATIVE (NEGATIVE)
--- NOTE | 2019-05-22 04:23 | PHYS DOC ---
Past Medical History Past Medical History: Hypertension Past Surgical History: No Surgical History Alcohol Use: None Drug Use: None Adult General Chief Complaint Chief Complaint: FLU SYMPTOM HPI HPI 63yo male presents to the ER with complaints of flu symptoms. Patient states started after [place]. He describes sore throat, weakness, cough. Denies any nausea, vomiting, diarrhea, or abdominal pain. States fevers off and on. is at bedside and state she has been using thera-flu however no improvement. Patient's cough is productive at times. Nothing makes symptoms worse or better. All other ROS negative unless documented in HPI Review of Systems Review of Systems See Above Current Medications Current Medications Current Medications Medications (Trade) Dose Ordered Sig/Cipriano Start Time Stop Time Status Last Admin Dose Admin Dexamethasone Sodium Phosphate (Decadron) 10 mg 1X ONCE 05/22/19 04:30 05/22/19 04:31 UNV Allergies Allergies Allergies Coded Allergies Type Severity Reaction Last Updated Verified No Known Drug Allergies 08/11/16 No Physical Exam Physical Exam See Above Constitutional: Well developed, well nourished, no acute distress, non-toxic appearance. [] HENT: Normocephalic, atraumatic, bilateral external ears normal, oropharynx moist, uvula mildly swollen and irritated, no oral exudates, nose normal. [] Neck: Normal range of motion, no tenderness, supple, no stridor. [] Cardiovascular:Heart rate regular rhythm, no murmur [] Lungs & Thorax: Bilateral breath sounds clear to auscultation [] Abdomen: Bowel sounds normal, soft, no tenderness, no masses, no pulsatile masses. [] Skin: Warm, dry, no erythema, no rash. [] Extremities: No tenderness, no edema. [] Neurologic: Alert and oriented X 3, no focal deficits noted. [] Psychologic: Affect normal, judgement normal, mood normal. [] Current Patient Data Vital Signs Vital Signs Date Time Temp Pulse Resp B/P (MAP) Pulse Ox O2 Delivery O2 Flow Rate FiO2 05/22/19 03:30 98.3 91 20 173/95 (121) 92 Room Air 98.3 Lab Values Laboratory Tests Test 05/22/19 03:39 Influenza Type A Antigen Positive (NEGATIVE) Influenza Type B Antigen Negative (NEGATIVE) EKG EKG [] Radiology/Procedures Radiology/Procedures [] Course & Med Decision Making Course & Med Decision Making Pertinent Labs and Imaging studies reviewed. (See chart for details) []63yo male presents to the ER with complaints of flu symptoms. Patient states started after [place]. He describes sore throat, weakness, cough. Denies any nausea, vomiting, diarrhea, or abdominal pain. States fevers off and on. is at bedside and state she has been using thera-flu however no improvement. Patient's cough is productive at times. Nothing makes symptoms worse or better. Strep negative Influenza A + Decadron 10mg IM Plan dc home with follow up with PCP as needed Tamiflu rx provided upon discharge Jd Disclaimer Jd Disclaimer This electronic medical record was generated, in whole or in part, using a voice recognition dictation system. Departure Departure Impression: Primary Impression: Influenza Disposition: 01 HOME, SELF-CARE Condition: STABLE Referrals: BRETT MASCORRO ACOUSTIC INTELLIGENCE SPECIALIST (PCP) Patient Instructions: Influenza A (H1N1) Additional Instructions: Recommend follow up with PCP 3 - 5 days Return to the ER with worsening symptoms, intractable pain, fever, altered mental status Tylenol/Motrin as needed for pain Take antiviral as prescribed (Tamiflu) Scripts Oseltamivir Phosphate (TAMIFLU) 75 Mg Capsule 1 CAP PO BID, #10 CAP Prov: DAVIDE FITZPATRICK MD 05/22/19 DAVIDE FITZPATRICK MD May 22, 2019 04:23
--- NOTE | 2019-05-22 04:49 | RAD ---
Exam: Chest one view INDICATION: Shortness of breath, cough TECHNIQUE: Frontal view of the chest Comparisons: 02/23/2019 FINDINGS: The cardiomediastinal silhouette and pulmonary vessels are within normal limits. The lung and pleural spaces are clear. IMPRESSION: No acute cardiopulmonary process. Electronically signed by: Meghna Gardiner MD (05/22/2019 4:46 AM) [id number]
== END ==
LOC: ER 03:19
DX: J10.1 Influenza due to other identified influenza virus with other respiratory manifestations (principal); I10 Essential (primary) hypertension
CPT/HCPCS: 71045; 87070; 87804; 87880; 96372; 99285; J1100

== ENCOUNTER → 2019-07-27 | Outpatient (CLI) | payer MEDICARE, BC ==
[2019-05-22 03:30] VITALS: BP 173/95
[~2019-07-27] MED LIST changes: -DEXAMETHASONE SOD PHOS 4 MG/ML VIAL IM ONE; +ZOLPIDEM 5 MG TABLET. PO ONE
--- NOTE | 2019-07-28 12:28 | SLEEP ---
DATE OF STUDY: 07/27/2019 SLEEP STUDY REFERRING PHYSICIAN: Chasity Kothari NP The patient is 63 years old who weighs 358 pounds with a BMI of 47. The patient's Water[place] score was 17. The patient underwent split night study performed at [facility]. During the night study, the patient spent 451 minutes in bed and slept for 295 minutes with a sleep efficiency of 65%, which is low. Sleep latency was 51 minutes with a REM latency of 217 minutes. Sleep architecture showed normal stage 1 and stage 2 sleep, increased slow wave and slightly reduced REM sleep. During the initial diagnostic portion of the study, the patient slept for 82 minutes. During that time, there were 18 obstructive apneas, no mixed or central apneas and 107 hypopneas. The patient's AHI was 92 per hour. Supine or REM sleep was not observed during the diagnostic portion. EKG monitoring revealed an average heart rate of 66 beats per minute, no sustained arrhythmias observed. Nocturnal oximetry study revealed a mean oxygen saturation of 94% with the lowest of 76%. 44% of time oxygen saturation remained between 80% and 89%. PLMS were seen at index of 29 per hour and 2 per hour caused EEG arousals. The patient met the criteria for CPAP initiation. It was started at 5 cm water and titrated up to 13 cm water. The patient slept for 49 minutes at the final pressure. The patient had supine as well as REM sleep. The patient's AHI was reduced to 0 per hour and oxygen saturation remained above 90%. The patient used medium size nasal pillows. IMPRESSION: 1. Severe sleep apnea-hypopnea syndrome at an AHI of 92 per hour. 2. Nocturnal hypoxia secondary to obstructive sleep apnea, but resolved with CPAP. 3. Moderate periodic limb movements without any significant EEG arousals. RECOMMENDATIONS: 1. CPAP at 13 cm water completely eliminated the patient's sleep apnea and should be used on a nightly basis. 2. Follow up in 4-6 weeks to assess compliance with CPAP and to document clinical improvement. 3. Weight loss is strongly advised. 4. Avoid OPERATIONS PROCESSOR depressants. 5. Cautioned regarding driving until symptoms of sleep apnea resolve with the use of CPAP. TRAVIS SCHWARTZ MD DR: HOLGER/hussain JOB#: [id number] / [id number] Chasity Rebolledo NP
== END | disposition home or self-care (01) ==
LOC: SLPLAB 19:20
PROVIDERS: ATTEND Internal Medicine Critical Care Medicine
DX: G47.33 Obstructive sleep apnea (adult) (pediatric) (principal); R09.02 Hypoxemia
CPT/HCPCS: 95810

== ENCOUNTER → 2019-12-29 | Outpatient (CLI) | payer MEDICARE, BC ==
[2019-05-22 03:30] VITALS: BP 173/95
[~2019-12-29] MED LIST changes: -ZOLPIDEM 5 MG TABLET. PO ONE
--- NOTE | 2019-12-29 16:13 | CARD ---
MR#: [id number] Date of Study: 12/29/2019 Ordering Physician: ELISHA ALEXANDER, Referring Physician: ELISHA ALEXANDER Tech: Paola Goodman RDCS APPROVED REPORT EXAM: Two-dimensional and M-mode echocardiogram with Doppler and color Doppler. Other Information Quality : Good INDICATION Congestive Heart Failure RISK FACTORS Obesity 2D DIMENSIONS RVDd3.4 (2.9-3.5cm)Left Atrium(2D)4.2 (1.6-4.0cm) IVSd1.5 (0.7-1.1cm)Aortic Root(2D)3.5 (2.0-3.7cm) LVDd4.3 (3.9-5.9cm)LVOT Diameter2.5 (1.8-2.4cm) PWd1.2 (0.7-1.1cm)LVDs2.6 (2.5-4.0cm) FS (%) 38.3 %SV56.0 ml LVEF(%)60.0 (>50%) Aortic Valve AoV Peak Clint.123.2cm/sAoV VTI24.3cm AO Peak GR.6.1mmHgLVOT Peak Clint.116.6cm/s AO Mean GR.4mmHgAVA (VMAX)4.58cm2 REYNALDO (VTI)5.00cm2 Mitral Valve MV E Iaavqhoa16.5cm/sMV DECEL [id number] MV A Ndiqvvwk31.8cm/sE/A Ratio1.0 Tricuspid Valve TR P. Mjwxdlqr461cm/sRAP HLEXXTYK1byPn TR Peak Gr.94caJlXKDP46bhJe Pulmonary Vein S1 Pkgjyozh77.6cm/sD2 Yaqvwopa80.7cm/s LEFT VENTRICLE The left ventricle is normal size. There is mild to moderate concentric left ventricular hypertrophy. The left ventricular systolic function is normal. The Ejection Fraction is 60-65%. There is normal L V segmental wall motion. RIGHT VENTRICLE The right ventricle is normal size. The right ventricular systolic function is normal. ATRIA The left atrium is mildly dilated. The right atrium is mildly dilated. The interatrial septum is inta ct with no evidence for an atrial septal defect or patent foramen ovale as noted on 2-D or Doppler im aging. AORTIC VALVE The aortic valve is calcified but opens well. Doppler and Color Flow revealed no significant aortic r egurgitation. There is no significant aortic valvular stenosis. MITRAL VALVE Mitral annular calcification is mild. The mitral valve is calcified but opens well. There is no evide nce of mitral valve prolapse. There is no mitral valve stenosis. Doppler and Color-flow revealed mild mitral regurgitation. TRICUSPID VALVE The tricuspid valve is normal in structure and function. Doppler and Color Flow revealed trace tricus pid regurgitation. The PA pressure was estimated at 24 mmHg. There is no tricuspid valve stenosis. PULMONIC VALVE The pulmonic valve is not well visualized. Doppler and Color Flow revealed trace pulmonic valvular re gurgitation. There is no pulmonic valvular stenosis. GREAT VESSELS The aortic root is normal in size. The ascending aorta is mildly dilated. The IVC was not visualized. PERICARDIAL EFFUSION There is no evidence of significant pericardial effusion. Critical Notification Critical Value: No <Conclusion> The left ventricular systolic function is normal. The Ejection Fraction is 60-65%. There is normal LV segmental wall motion. Mild mitral regurgitation. Trace tricuspid regurgitation. The PA pressure was estimated at 24 mmHg. There is no evidence of significant pericardial effusion. Signed by : Elisha Alexander, Electronically Approved : 12/29/2019 16:12:33
== END | disposition home or self-care (01) ==
LOC: ECHO 11:01
PROVIDERS: ATTEND Internal Medicine Cardiovascular Disease
DX: I08.0 Rheumatic disorders of both mitral and aortic valves (principal); I50.32 Chronic diastolic (congestive) heart failure
CPT/HCPCS: 93306